=== PATIENT | female | born 1940 | race Caucasian/White ===

== ENCOUNTER 2019-01-07 16:44 | Emergency (ER) | payer OTHER, MEDICARE ==
--- NOTE | 2019-01-07 17:46 | ER ---
Nurse's Notes [facility] Name: Faith Moreira Age: 78 yrs Sex: Female : 1940 Arrival Date: 01/07/2019 Time: 16:45 Bed 15 Private MD: Diagnosis: Urinary tract infection, site not specified;Tinnitus, unspecified ear Presentation: 01/07 16:49 Presenting complaint: Urinary frequency, nausea, and malaise x 5 days. Recently hb completed Zithromax for URI. Transition of care: patient was not received from another setting of care. Onset of symptoms was January 02, 2019. Risk Assessment: Do you want to hurt yourself or someone else? Patient reports no desire to harm self or others. Care prior to arrival: None. 16:49 Method Of Arrival: Ambulatory 16:49 Acuity: PAUL 3 hb 17:15 Initial Sepsis Screen: Does the patient meet any 2 criteria? No. Patient's initial rb1 sepsis screen is negative. Does the patient have a suspected source of infection? No. Patient's initial sepsis screen is negative. Historical: - Allergies: 16:53 Codeine; hb - Home Meds: 16:53 levothyroxine oral [Active]; Lisinopril Oral [Active]; Lorazepam Oral [Active]; hb - PMHx: 16:53 Hypertension; Hypothyroidism; hb - PSHx: 16:53 Hysterectomy; partial thyroidectomy; hb - Immunization history:: Adult Immunizations up to date. - Social history:: Smoking status: Patient/guardian denies using tobacco. - Ebola Screening: : No symptoms or risks identified at this time. Screenin:15 Abuse screen: Denies threats or abuse. Nutritional screening: No deficits noted. rb1 Tuberculosis screening: No symptoms or risk factors identified. Fall Risk No fall in past 12 months (0 pts). Secondary diagnosis (15 points) dementia, No IV (0 pts). Ambulatory Aid- None/Bed Rest/Nurse Assist (0 pts). Gait- Normal/Bed Rest/Wheelchair (0 pts) Mental Status- Overestimates/Forgets Limitations (15 pts.). Total Zuleta Fall Scale indicates Low Risk Score (25-44 pts). Fall prevention measures have been instituted. Side Rails Up X 2 Placed close to Nursing Station 1:1 attendant Assigned to Pt. Frequent Obs/Assesments occuring Family Present and informed to notify staff if they need to leave bedside As available Patient and Family Educated on Fall Prevention Program and strategies. Assessment: 17:15 General: Appears in no apparent distress. comfortable, Behavior is calm, cooperative, rb1 Denies fever. Pain: Denies pain. Neuro: Level of Consciousness is awake, alert, obeys commands, Oriented to person, place, situation. Cardiovascular: Capillary refill < 3 seconds is brisk in bilateral fingers. Respiratory: Airway is patent Respiratory effort is even, unlabored, Respiratory pattern is regular, symmetrical. GI: Reports nausea. : Reports urinary frequency, Denies burning with urination. : Reports. EENT: Reports ringing in bilateral ears. Derm: Skin is pink, warm \T\ dry. Musculoskeletal: Range of motion: intact in all extremities. 17:15 Reassessment: Daughter reports that the pt. had a cold three weeks ago. Pt. was given a rb1 Z-pack and finished it recently. 17:20 Reassessment: Urine was sent to the lab by ELIO Bowers. rb1 18:03 Reassessment: Discharge pending due to shot time. rb1 18:15 Reassessment: Patient appears in no apparent distress at this time. Patient and/or rb1 family updated on plan of care and expected duration. Pain level reassessed. Patient is alert, oriented x 3, equal unlabored respirations, skin warm/dry/pink. No adverse reaction noted at this time. Vital Signs: 16:51 BP 160 / 93; Pulse 86; Resp 16; Temp 97.9; Pulse Ox 96% on R/A; Pain 0/10; hb 17:50 BP 153 / 89; Pulse 78; Resp 15; Pulse Ox 99% on R/A; rb1 ED Course: 16:45 Patient arrived in ED. ds1 16:51 Triage completed. hb 16:53 Arm band placed on. hb 17:15 Patient has correct armband on for positive identification. Bed in low position. Call rb1 light in reach. Side rails up X 1. Pulse ox on. NIBP on. 17:16 Rivka Meza RN is Primary Nurse. rb1 17:21 Jessica Gonzalez FNP-C [facility]. snw 17:21 Patrick Suarez MD is Attending Physician. snw 18:20 No provider procedures requiring assistance completed. Patient did not have IV access rb1 during this emergency room visit. Administered Medications: 18:03 Drug: Rocephin (cefTRIAXone) 1 grams Route: IM; Site: left gluteus; rb1 18:18 Follow up: Response: No adverse reaction rb1 Outcome: 17:46 Discharge ordered by MD. brizuela 18:20 Patient left the ED. rb1 18:20 Discharged to home ambulatory, with family. rb1 18:20 Condition: stable 18:20 Discharge instructions given to patient, Instructed on discharge instructions, follow up and referral plans. medication usage, Demonstrated understanding of instructions, follow-up care, medications, Prescriptions given X 1. Signatures: Jessica Gonzalez, DIRECTOR OF SPA AND GUEST EXPERIENCE-C DIRECTOR OF SPA AND GUEST EXPERIENCE-CsnBrook Swain ds1 Rivka Meza, RN RN rb1 Rafia Rush RN RN Corrections: (The following items were deleted from the chart) 18:43 18:39 Patient left the ED. rb1 rb1
--- NOTE | 2019-01-07 17:46 | EDPHYS ---
Physician Documentation [facility] Name: Faith Moreira Age: 78 yrs Sex: Female : 1940 Arrival Date: 01/07/2019 Time: 16:45 Bed 15 Private MD: ED Physician Patrick Suarez HPI: 01/07 17:47 This 78 yrs old Female presents to ER via Ambulatory with complaints of snw Urinary Frequency. 17:47 The patient presents with urinary symptoms, dysuria, frequency, urgency. Onset: The snw symptoms/episode began/occurred suddenly. Associated signs and symptoms: Pertinent positives: dysuria, urinary frequency, pt and family state she had a recent URI and is having tinnitus and difficulty hearing. No dizziness, no aspirin daily use or recent large doses. Severity of symptoms: At their worst the symptoms were moderate. It is unknown whether or not the patient has had similar symptoms in the past. It is unknown whether or not the patient has recently seen a physician. Historical: - Allergies: 16:53 Codeine; hb - Home Meds: 16:53 levothyroxine oral [Active]; Lisinopril Oral [Active]; Lorazepam Oral [Active]; hb - PMHx: 16:53 Hypertension; Hypothyroidism; hb - PSHx: 16:53 Hysterectomy; partial thyroidectomy; hb - Immunization history:: Adult Immunizations up to date. - Social history:: Smoking status: Patient/guardian denies using tobacco. - Ebola Screening: : No symptoms or risks identified at this time. ROS: 17:47 Constitutional: Negative for fever, chills, and weight loss, Eyes: Negative for injury, snw pain, redness, and discharge, Neck: Negative for injury, pain, and swelling, Cardiovascular: Negative for chest pain, palpitations, and edema, Respiratory: Negative for shortness of breath, cough, wheezing, and pleuritic chest pain, Abdomen/GI: Negative for abdominal pain, nausea, vomiting, diarrhea, and constipation, Back: Negative for injury and pain, MS/Extremity: Negative for injury and deformity, Skin: Negative for injury, rash, and discoloration, Neuro: Negative for headache, weakness, numbness, tingling, and seizure. 17:47 ENT: Positive for tinnitus. 17:47 : Positive for urinary symptoms, urinary frequency, small amounts, burning with urination. Exam: 17:47 Constitutional: This is a well developed, well nourished patient who is awake, alert, snw and in no acute distress. Head/Face: Normocephalic, atraumatic. Eyes: Pupils equal round and reactive to light, extra-ocular motions intact. Lids and lashes normal. Conjunctiva and sclera are non-icteric and not injected. Cornea within normal limits. Periorbital areas with no swelling, redness, or edema. ENT: Nares patent. No nasal discharge, no septal abnormalities noted. Tympanic membranes are normal and external auditory canals are clear. Oropharynx with no redness, swelling, or masses, exudates, or evidence of obstruction, uvula midline. Mucous membranes moist. Neck: Trachea midline, no thyromegaly or masses palpated, and no cervical lymphadenopathy. Supple, full range of motion without nuchal rigidity, or vertebral point tenderness. No Meningismus. Chest/axilla: Normal chest wall appearance and motion. Nontender with no deformity. No lesions are appreciated. Cardiovascular: Regular rate and rhythm with a normal S1 and S2. No gallops, murmurs, or rubs. Normal PMI, no JVD. No pulse deficits. Respiratory: Lungs have equal breath sounds bilaterally, clear to auscultation and percussion. No rales, rhonchi or wheezes noted. No increased work of breathing, no retractions or nasal flaring. Abdomen/GI: Soft, non-tender, with normal bowel sounds. No distension or tympany. No guarding or rebound. No evidence of tenderness throughout. Back: No spinal tenderness. No costovertebral tenderness. Full range of motion. Skin: Warm, dry with normal turgor. Normal color with no rashes, no lesions, and no evidence of cellulitis. MS/ Extremity: Pulses equal, no cyanosis. Neurovascular intact. Full, normal range of motion. Neuro: Awake and alert, GCS 15, oriented to person, place, time, and situation. Cranial nerves II-XII grossly intact. Motor strength 5/5 in all extremities. Sensory grossly intact. Cerebellar exam normal. Normal gait. Psych: Awake, alert, with orientation to person, place and time. Behavior, mood, and affect are within normal limits. Vital Signs: 16:51 BP 160 / 93; Pulse 86; Resp 16; Temp 97.9; Pulse Ox 96% on R/A; Pain 0/10; hb 17:50 BP 153 / 89; Pulse 78; Resp 15; Pulse Ox 99% on R/A; rb1 MDM: 17:29 Patient medically screened. [facility] 17:46 Data reviewed: vital signs, nurses notes. Data interpreted: Pulse oximetry: on room air snw is 96 %. Interpretation: acceptable. Counseling: I had a detailed discussion with the patient and/or guardian regarding: the historical points, exam findings, and any diagnostic results supporting the discharge/admit diagnosis, lab results, the need for outpatient follow up, to return to the emergency department if symptoms worsen or persist or if there are any questions or concerns that arise at home. Special discussion: Based on the history and exam findings, there is no indication for further emergent testing or inpatient evaluation. I discussed with the patient/guardian the need to see the ENT specialist for further evaluation of the symptoms. I discussed with the patient/guardian the need to see the primary care provider for further evaluation of the symptoms. 18:28 Response to treatment: There is no appreciated change of the patient's symptoms at this snw time. 01/07 17:17 Order name: Urine Dipstick--Ancillary (enter results) ms 01/07 17:17 Order name: Urine Culture ms Administered Medications: 18:03 Drug: Rocephin (cefTRIAXone) 1 grams Route: IM; Site: left gluteus; rb1 18:18 Follow up: Response: No adverse reaction rb1 Disposition: 01/08 07:55 Co-signature as Attending Physician, Patrick Suarez MD I agree with the assessment and [facility] plan of care. Disposition: 01/07/19 17:46 Discharged to Home. Impression: Urinary tract infection, site not specified, Tinnitus, unspecified ear. - Condition is Stable. - Discharge Instructions: Dysuria, Tinnitus, Hypertension, Urinary Tract Infection, Adult, Rehydration, Adult. - Prescriptions for Augmentin 875- 125 mg Oral Tablet - take 1 tablet by ORAL route every 12 hours for 10 days; 20 tablet. - Medication Reconciliation Form, Thank You Letter, Antibiotic Education, Prescription Opioid Use form. - Follow up: Private Physician; When: 2 - 3 days; Reason: Recheck today's complaints, Continuance of care, Re-evaluation by your physician. Follow up: Emergency Department; When: As needed; Reason: Worsening of condition. Signatures: Dispatcher [employer] [facility] Patrick Suarez MD MD cha Therrien, Shelly, DATA SCIENCE AND IOT MANAGER-C DATA SCIENCE AND IOT MANAGER-Csnw Rivka Meza, RN RN rb1 Rafia Rush RN RN Corrections: (The following items were deleted from the chart) 01/07 18:27 17:46 Urine Culture+BA.LAB.BRZ ordered. [facility] 18:39 17:46 01/07/2019 17:46 Discharged to Home. Impression: Urinary tract infection, site rb1 not specified; Tinnitus, unspecified ear. Condition is Stable. Forms are Medication Reconciliation Form, Thank You Letter, Antibiotic Education, Prescription Opioid Use. Follow up: Private Physician; When: 2 - 3 days; Reason: Recheck today's complaints, Continuance of care, Re-evaluation by your physician. Follow up: Emergency Department; When: As needed; Reason: Worsening of condition. snw
[2019-01-07] MEDS ORDERED: CEFTRIAXONE 1000 MG/VIAL ONE (18:08)
[2019-01-07 20:39] LABS: Urine Blood 2+ (NEG); Urine Glucose NEGATIVE (NEG); Urine Protein 2+ (NEG); Urine Specific Gravity 1.025 (1.005-1.030)
== END 2019-01-07 18:39 | disposition home or self-care (01) ==
LOC: ER 16:44
DX: N39.0 Urinary tract infection, site not specified (principal); H93.19 Tinnitus, unspecified ear; I10 Essential (primary) hypertension; E03.9 Hypothyroidism, unspecified; Z88.5 Allergy status to narcotic agent
CPT/HCPCS: 81003; 87077; 87086; 87088; 87186; 96372; 99283

== ENCOUNTER 2020-07-22 10:44 | Emergency (ER) | payer OTHER, MEDICARE ==
[2020-07-22] MEDS ORDERED: MORPHINE 2 MG/ML SYR ONE (11:10)
[2020-07-22] MEDS ORDERED: ONDANSETRON 4 MG/2 ML VIAL ONE ×2 (11:10→13:33)
[2020-07-22] MEDS ORDERED: NA CHLORIDE 0.9% 500 ML ONE (11:10)
[2020-07-22 11:22] LABS: Absolute Lymphocytes (CBC) 2.2 K/uL (0.7-4.9); Hematocrit 42.3 % (36.0-45.0); Lymphocytes % 27.1 % (15.3-44.8); MPV 8.2 fL (7.6-11.3); RBC Red Blood Cell Count 4.67 M/uL (3.86-4.86)
[2020-07-22 11:41] LABS: Albumin 3.5 g/dL (3.4-5.0); Bilirubin Direct 0.1 mg/dL (0-0.2); Bilirubin Total 0.5 mg/dL (0.2-1.0); Potassium 3.3 mmol/L (3.5-5.1)
--- NOTE | 2020-07-22 11:45 | RAD REPORT ---
EXAM DESCRIPTION: CT - Stone Protocol - 07/22/2020 11:28 am CLINICAL HISTORY: Flank pain. FLANK PAIN COMPARISON: No comparisons TECHNIQUE: Axial images were obtained without oral or IV contrast. Lack of contrast limits solid org an and vascular assessment. The [id number] spans the entirety of the system partially obscuring uppermost abdomen and lung bases. Coronal reformatted images were obtained and reviewed. All CT scans are performed using dose optimization technique as appropriate and may include automated exposure control or mA/KV adjustment according to patient size. FINDINGS: Emphysematous lung bases are present. Mild thickening of the distal esophagus is present. Imaged portions of the liver and spleen show no suspicious findings on non-contrast imaging. The panc reas and adrenal glands are normal. No pathologic lymphadenopathy in the abdomen or pelvis. 2 mm calculus is present inferior calyx right kidney. Otherwise, no urinary tract stone seen. No hydr onephrosis is evident. No bowel obstruction, free air, free fluid or abscess. Normal appendix noted. Moderate lumbosacral degenerative changes. Small fat containing inguinal hernias, slightly larger on the right. IMPRESSION: 2 mm calculus inferior right kidney without hydronephrosis.
[2020-07-22 11:50] LABS: Urine Bacteria <20 /HPF (<20); Urine Culture Reflex Order NOT NEEDED; Urine RBC <5 /HPF (NONE SEEN)
--- NOTE | 2020-07-22 13:05 | RAD REPORT ---
EXAM DESCRIPTION: US - Abdomen Exam Limited - 07/22/2020 12:57 pm CLINICAL HISTORY: back pain, right upper quadrant pain COMPARISON: Stone Protocol dated 07/22/2020 FINDINGS: No gallstones, sludge or other abnormalities within the gallbladder lumen. There is no wal l thickening or pericholecystic fluid. No common duct stone or biliary tree dilatation identified. IMPRESSION: Normal gallbladder and biliary tree ultrasound.
--- NOTE | 2020-07-22 13:40 | ER ---
Nurse's Notes [facility] Name: Faith Moreira Age: 79 yrs Sex: Female : 1940 Arrival Date: 07/22/2020 Time: 10:47 Bed 17 Private MD: Diagnosis: Low back pain Presentation: 07/22 10:52 Chief complaint: EMS states: Right flank pain, radiate to RUQ, unknown when pain jl7 started. Pt A\T\Ox2 to self and place. Coronavirus screen: Client denies travel out of the [place] in the last 14 days. At this time, the client does not indicate any symptoms associated with coronavirus-19. Ebola Screen: No symptoms or risks identified at this time. Initial Sepsis Screen: Does the patient meet any 2 criteria? No. Patient's initial sepsis screen is negative. Does the patient have a suspected source of infection? No. Patient's initial sepsis screen is negative. Risk Assessment: Do you want to hurt yourself or someone else? Patient reports no desire to harm self or others. Onset of symptoms is unknown. Care prior to arrival: Medication(s) given: 30 mg Toradol IVP IV initiated. 20 GA, in the left hand. 10:52 Method Of Arrival: EMS: [facility] jl7 10:52 Acuity: PAUL 3 jl7 Triage Assessment: 10:55 General: Appears in no apparent distress. uncomfortable, Behavior is cooperative, jl7 anxious. Pain: Complains of pain in right mid back Pain radiates to right upper quadrant Pain currently is 10 out of 10 on a pain scale. Is continuous. Neuro: Level of Consciousness is awake, alert, obeys commands, Oriented to person, place, time, situation. Cardiovascular: Patient's skin is warm and dry. Respiratory: Airway is patent Respiratory effort is even, unlabored, Respiratory pattern is symmetrical, tachypnea. GI: Abdomen is round non-distended. : Denies burning with urination. Derm: Skin is pink, warm \T\ dry. Historical: - Allergies: 10:55 Codeine; jl7 - PMHx: 10:55 Hypertension; Hypothyroidism; jl7 - PSHx: 10:55 Hysterectomy; jl7 - Immunization history:: Adult Immunizations unknown. - Social history:: Smoking status: Patient denies any tobacco usage or history of. Screenin:27 Abuse screen: Denies threats or abuse. Denies injuries from another. Nutritional jl7 screening: No deficits noted. Tuberculosis screening: No symptoms or risk factors identified. Fall Risk IV access (20 points). Total Zuleta Fall Scale indicates No Risk (0-24 pts). Assessment: 11:27 Reassessment: daughter at bedside, reports hx of dementia and the pain started suddenly jl7 this morning. 12:13 Reassessment: Patient appears in no apparent distress at this time. No changes from jl7 previously documented assessment. Patient and/or family updated on plan of care and expected duration. Pain level reassessed. Patient is alert, oriented x 3, equal unlabored respirations, skin warm/dry/pink. 13:30 Reassessment: Patient appears in no apparent distress at this time. Patient and/or jl7 family updated on plan of care and expected duration. Pain level reassessed. Patient is alert, oriented x 3, equal unlabored respirations, skin warm/dry/pink. Patient states feeling better. Patient states symptoms have improved. Vital Signs: 10:52 BP 165 / 74; Pulse 78; Resp 23; Temp 97.9; Pulse Ox 100% ; Weight 68.04 kg; Pain 10/10; jl7 12:12 BP 161 / 66; Pulse 81; Resp 19 S; Pulse Ox 100% on R/A; jl7 13:30 BP 158 / 77; Pulse 72; Resp 15; Pulse Ox 100% ; jl7 ED Course: 10:47 Patient arrived in ED. em1 10:48 Patrick Feliz PA is PHCP. cp 10:48 Augustin Adams MD is Attending Physician. cp 10:52 Tao Tate RN is Primary Nurse. jl7 10:54 Triage completed. jl7 10:55 Arm band placed on right wrist. jl7 11:11 Initial lab(s) drawn, by me, sent to lab. Maintain EMS IV. Dressing intact. Good blood jl7 return noted. Site clean \T\ dry. Gauge \T\ site: 20 left hand. 11:20 Urine collected: straight cath specimen, clear, Amount Returned: 400mL. Straight cath jl7 inserted, using sterile technique, 16 Fr. Specimen obtained. Returned clear yellow urine. Patient tolerated well. 11:27 Patient has correct armband on for positive identification. Placed in gown. Bed in low jl7 position. Call light in reach. Side rails up X2. Adult w/ patient. potline monitor on. Pulse ox on. NIBP on. Warm blanket given. 11:28 CT Stone Protocol In Process Unspecified. EDMS 12:57 US Abdomen Limited: RUQ abdomen/epigastric In Process Unspecified. EDMS 13:38 Vito Martinez MD is Referral Physician. cp 13:38 Referral Physician role handed off by Vito Martinez MD cp 14:00 No provider procedures requiring assistance completed. IV discontinued, intact, jl7 bleeding controlled, No redness/swelling at site. Pressure dressing applied. Administered Medications: 11:05 Drug: NS 0.9% 250 ml Route: IV; Rate: bolus; Site: left hand; jl7 11:30 Follow up: IV Status: Completed infusion; IV Intake: 250ml jl7 11:05 Drug: Zofran (Ondansetron) 4 mg Route: IVP; Site: left hand; jl7 12:03 Follow up: Response: No adverse reaction jl7 11:08 Drug: morphine 2 mg Route: IVP; Site: left hand; jl7 11:30 Follow up: Response: Pain is unchanged, physician notified jl7 13:28 Drug: Zofran (Ondansetron) 4 mg Route: IVP; Site: right hand; 2 14:13 Follow up: Response: No adverse reaction jl7 14:00 Drug: traMADol 25 mg Route: PO; jl7 14:13 Follow up: Response: Medication administered at discharge. jl7 14:00 Drug: Tylenol 650 mg Route: PO; jl7 14:13 Follow up: Response: Medication administered at discharge. jl7 Intake: 11:30 IV: 250ml; Total: 250ml. jl7 Outcome: 13:39 Discharge ordered by MD. cp 14:00 Discharged to home via wheelchair, with family. jl7 14:00 Condition: stable 14:00 Discharge instructions given to patient, family, Instructed on discharge instructions, follow up and referral plans. medication usage, Demonstrated understanding of instructions, follow-up care, medications, Prescriptions given X 2. 14:15 Patient left the ED. jl7 Signatures: Dispatcher [employer] Efrain Michaels em1 Page, Patrick, Tao Best cp, RN RN jl7 Lalita Boswell, RN RN ll2
--- NOTE | 2020-07-22 13:40 | EDPHYS ---
Physician Documentation [facility] Name: Faith Moreira Age: 79 yrs Sex: Female : 1940 Arrival Date: 07/22/2020 Time: 10:47 Bed 17 Private MD: ED Physician Augustin Adams HPI: 07/22 10:50 This 79 yrs old Female presents to ER via Unassigned with complaints of Right cp Flank Pain. 10:50 The patient complains of pain in the right mid back. The pain does not radiate. Onset: cp The symptoms/episode began/occurred suddenly, this morning. Associated signs and symptoms: Pertinent negatives: diarrhea, fever, pain radiating to the lower extremities, vomiting. Severity of pain: in the emergency department the pain is unchanged despite EMS interventions. Historical: - Allergies: 10:55 Codeine; jl7 - PMHx: 10:55 Hypertension; Hypothyroidism; jl7 - PSHx: 10:55 Hysterectomy; jl7 - Immunization history:: Adult Immunizations unknown. - Social history:: Smoking status: Patient denies any tobacco usage or history of. ROS: 10:55 Back: Positive for flank pain, on the right. cp 10:55 Constitutional: Negative for fever. cp 10:55 Cardiovascular: Negative for chest pain. 10:55 Respiratory: Negative for cough. 10:55 Abdomen/GI: Negative for vomiting, diarrhea, constipation. 10:55 Neuro: Negative for headache, weakness. 10:55 Skin: Negative for cellulitis, rash. cp 10:55 : Negative for urinary symptoms. cp 10:55 All other systems are negative. Exam: 10:57 Head/Face: Normocephalic, atraumatic. cp 10:57 Constitutional: The patient appears in no acute distress, alert, awake, non-diaphoretic, non-toxic, well developed, well nourished, uncomfortable. 11:00 Eyes: Periorbital structures: appear normal, Conjunctiva: normal, no exudate, no cp injection, Sclera: no appreciated abnormality, Lids and lashes: appear normal, bilaterally. 11:00 ENT: External ear(s): are unremarkable, Nose: is normal, Mouth: Lips: moist, Oral mucosa: moist, Posterior pharynx: Airway: no evidence of obstruction, patent. 11:00 Chest/axilla: Inspection: normal, Palpation: is normal, no crepitus, no tenderness. 11:00 Cardiovascular: Rate: normal, Rhythm: regular, Edema: is not appreciated, JVD: is not appreciated. 11:00 Respiratory: the patient does not display signs of respiratory distress, Respirations: normal, no use of accessory muscles, no retractions, labored breathing, is not present, Breath sounds: are clear throughout, no decreased breath sounds. 11:00 Abdomen/GI: Inspection: abdomen appears normal, Bowel sounds: active, all quadrants, Palpation: soft, in all quadrants, mild abdominal tenderness, in the anterior aspect of right lateral abdomen, right upper quadrant and right lower quadrant, severe abdominal tenderness, in the posterior aspect of right lateral abdomen. 11:00 Back: pain, that is moderate, of the right mid back, ROM is normal. 11:00 Skin: no rash present. 11:00 Neuro: Orientation: no acute changes, per EMS, Mentation: no acute changes, per EMS, Motor: moves all fours, strength is normal. Vital Signs: 10:52 BP 165 / 74; Pulse 78; Resp 23; Temp 97.9; Pulse Ox 100% ; Weight 68.04 kg; Pain 10/10; jl7 12:12 BP 161 / 66; Pulse 81; Resp 19 S; Pulse Ox 100% on R/A; jl7 13:30 BP 158 / 77; Pulse 72; Resp 15; Pulse Ox 100% ; jl7 MDM: 10:50 Patient medically screened. cp 11:05 Differential diagnosis: nephrolithiasis, pyelonephritis, UTI, pancreatitis, cp cholecystitis. 13:38 Data reviewed: vital signs, nurses notes, lab test result(s), radiologic studies, CT cp scan. 13:38 Counseling: I had a detailed discussion with the patient and/or guardian regarding: the cp historical points, exam findings, and any diagnostic results supporting the discharge/admit diagnosis, lab results, radiology results, the need for outpatient follow up, a family practitioner, to return to the emergency department if symptoms worsen or persist or if there are any questions or concerns that arise at home. Response to treatment: the patient's symptoms have markedly improved after treatment, VSS. Pain and nausea improved. CT negative for acute findings. Will discharge to home for continued monitoring. 07/22 10:50 Order name: Basic Metabolic Panel; Complete Time: 12:04 cp 07/22 12:04 Interpretation: Normal except: K 3.3; GLUC 109; GFR 65. cp 07/22 10:50 Order name: CBC with Diff; Complete Time: 12:04 cp 07/22 10:50 Order name: Hepatic Function; Complete Time: 12:04 cp 07/22 12:11 Interpretation: Normal except: GLOB 4.5; A/G 0.8. cp 07/22 10:50 Order name: Lipase; Complete Time: 12:04 cp 07/22 10:50 Order name: Urine Microscopic Only; Complete Time: 12:04 cp 07/22 11:32 Order name: Urine Dipstick--Ancillary (enter results) em1 07/22 10:50 Order name: CT Stone Protocol; Complete Time: 12:04 cp 07/22 12:31 Order name: US Abdomen Limited: RUQ abdomen/epigastric; Complete Time: 13:19 cp 07/22 10:50 Order name: IV Saline Lock; Complete Time: 10:56 cp 07/22 10:50 Order name: Labs collected and sent; Complete Time: 11:11 cp 07/22 10:50 Order name: Urine Dipstick-Ancillary (obtain specimen); Complete Time: 11:28 cp Administered Medications: 11:05 Drug: NS 0.9% 250 ml Route: IV; Rate: bolus; Site: left hand; jl7 11:30 Follow up: IV Status: Completed infusion; IV Intake: 250ml jl7 11:05 Drug: Zofran (Ondansetron) 4 mg Route: IVP; Site: left hand; jl7 12:03 Follow up: Response: No adverse reaction jl7 11:08 Drug: morphine 2 mg Route: IVP; Site: left hand; jl7 11:30 Follow up: Response: Pain is unchanged, physician notified jl7 13:28 Drug: Zofran (Ondansetron) 4 mg Route: IVP; Site: right hand; 2 14:13 Follow up: Response: No adverse reaction jl7 14:00 Drug: traMADol 25 mg Route: PO; jl7 14:13 Follow up: Response: Medication administered at discharge. jl7 14:00 Drug: Tylenol 650 mg Route: PO; jl7 14:13 Follow up: Response: Medication administered at discharge. jl7 Disposition: 13:50 Chart complete. cp 15:21 Co-signature as Attending Physician, Augustin Adams MD. rn Disposition: 07/22/20 13:39 Discharged to Home. Impression: Low back pain. - Condition is Stable. - Discharge Instructions: Back Pain, Adult. - Prescriptions for Tramadol 50 mg Oral Tablet - take 1 tablet by ORAL route every 8 hours As needed as needed; 15 tablet. Mobic 7.5 mg Oral Tablet - take 1 tablet by ORAL route once daily take with food; 20 tablet. - Medication Reconciliation Form, Thank You Letter, Antibiotic Education, Prescription Opioid Use form. - Follow up: Vito Martinez MD; When: 1 - 2 days; Reason: Worsening of condition. Follow up: Private Physician; When: 1 - 2 days; Reason: Recheck today's complaints. - Problem is new. - Symptoms have improved. Signatures: Dispatcher [employer] EDMS Augustin Adams MD MD rn Patrick Feliz PA PA cp Tao Tate RN RN jl7 Lalita Boswell RN RN ll2 Corrections: (The following items were deleted from the chart) 14:15 13:39 07/22/2020 13:39 Discharged to Home. Impression: Low back pain. Condition is jl7 Stable. Forms are Medication Reconciliation Form, Thank You Letter, Antibiotic Education, Prescription Opioid Use. Follow up: Private Physician; When: 1 - 2 days; Reason: Recheck today's complaints. Problem is new. Symptoms have improved. cp 07/23 01:30 07/22 10:55 All other systems are negative, cp cp
[2020-07-22] MEDS ORDERED: ACETAMINOPHEN 325 MG TABLET ONE (14:03)
[2020-07-22] MEDS ORDERED: TRAMADOL HCL 50 MG TAB ONE (14:04)
[2020-07-22 14:28] LABS: Urine Blood TRACE (NEG); Urine Glucose NEGATIVE (NEG); Urine Protein NEGATIVE (NEG)
[2020-07-22 18:05] VITALS: TEMP 97.9; O2SAT 100
[2020-07-22 18:07] VITALS: BP 158/77
== END 2020-07-22 14:15 | disposition home or self-care (01) ==
LOC: ER 10:44
DX: M54.5 Low back pain (principal); I10 Essential (primary) hypertension; Z88.5 Allergy status to narcotic agent
CPT/HCPCS: 85025; 80048; 36415; 80076; 83690; 76377; 74176; 76705; 51702; 99284; Q9967; J2270; J7040; J2405 ×2; 81003; 81015

== ENCOUNTER 2020-08-03 05:38 | Observation (INO) | payer OTHER, MEDICARE ==
[2020-08-03 06:28] LABS: Absolute Lymphocytes (CBC) 1.6 K/uL (0.7-4.9); Basophils % 0.8 % (0-1.3); Hematocrit 38.7 % (36.0-45.0); Lymphocytes % 19.1 % (15.3-44.8); MPV 8.2 fL (7.6-11.3)
[2020-08-03 06:41] LABS: Protime INR 1.04
[2020-08-03 06:49] LABS: ALT/SGPT 23 U/L (12-78); AST/SGOT 17 U/L (15-37); Albumin 3.2 g/dL (3.4-5.0); Alkaline Phosphatase 94 U/L (45-117); BUN Blood Urea Nitrogen 10 mg/dL (7-18); Bicarbonate 23 mmol/L (21-32); Bilirubin Direct 0.1 mg/dL (0-0.2); Bilirubin Total 0.6 mg/dL (0.2-1.0); Glucose Level 131 mg/dL (74-106); NT PRO-BNP 136 pg/mL (<450); Potassium 3.7 mmol/L (3.5-5.1); Protein, Total 6.9 g/dL (6.4-8.2); Sodium Level 138 mmol/L (136-145); Troponin (Emerg Dept Use Only) < 0.02 ng/mL (0.0-0.045)
[2020-08-03] MEDS ORDERED: ONDANSETRON 4 MG/2 ML VIAL ONE (06:58)
[2020-08-03] MEDS ORDERED: MORPHINE 4 MG/ML SYR ONE (06:58)
[2020-08-03] MEDS ORDERED: FENTANYL CITR 100 MCG/2 ML ONE (07:14)
--- NOTE | 2020-08-03 08:47 | RAD REPORT ---
EXAM DESCRIPTION: CT - Stone Protocol - 08/03/2020 8:03 am CLINICAL HISTORY: fall, low back pain, abdominal pain COMPARISON: Stone Protocol dated 07/22/2020 TECHNIQUE: Axial [address] imaging of the abdomen and pelvis was performed without IV contrast. No IV contrast was given because of allergy, abnormal renal function, patient refusal or physician re quest. No oral contrast given. All CT scans are performed using dose optimization technique as appropriate and may include automated exposure control or mA/KV adjustment according to patient size. FINDINGS: No acute lung base finding. No pericardial effusion, pericardial thickening or cardiomegal y. Slight elevation of the right hemidiaphragm noted. There is slight thickening of the distal esopha denia rubi. This is probably artifact or may be very minimal sliding-type hiatal hernia. This less pro minent than on the prior study. The liver, spleen and pancreas show no suspicious findings on non-contrast imaging. Gallbladder and b iliary tree are also without suspicious finding. No hydronephrosis or suspicious renal mass. Small nonobstructing calculus still present lower pole ri ght kidney. No significant adrenal finding. Isodense renal masses and pyelonephritis cannot be exclud ed in the absence of IV contrast. The urinary bladder is without significant finding. Uterus is absen t. Atrophic ovaries show no suspicious findings. No dilated bowel loops or bowel wall thickening. No appendicitis or other active bowel process. Diver ticulosis is minimal. No free air, free fluid or inflammatory stranding. No mass or bulky lymphadenop athy. Small inguinal hernias are present extending 2-3 cm into the inguinal canals. This is a stable presentation over the short interval. Degenerative and scoliotic changes in the spine are again noted. Multilevel degenerative disc disease seen. No new compression fracture or acute spine finding. IMPRESSION: As detailed above, no acute or active abdominal or pelvic process identified. No worriso me change from July 22 imaging. Full assessment is limited is the absence of IV contrast.
--- NOTE | 2020-08-03 08:49 | RAD REPORT ---
EXAM DESCRIPTION: CT - CTHCSPWOC - 08/03/2020 8:26 am CLINICAL HISTORY: fall, head and neck injury COMPARISON: No comparisons TECHNIQUE: Axial 5 mm thick images of the head were obtained. Axial 2 mm thick images of the cervic al spine were obtained with sagittal and coronal reconstruction images generated and reviewed. All CT scans are performed using dose optimization technique as appropriate and may include automated exposure control or mA/KV adjustment according to patient size. FINDINGS: No intracranial hemorrhage, mass, edema or acute intracranial finding. No acute cortical b ased infarction. Moderate severity atrophy and chronic ischemic changes are present. Ventricles are i n proportion to volume loss. Mastoid air cells and paranasal sinuses are clear. No globe or orbit abn ormality seen. Cervical bodies are normal in height. Slight retrolisthesis of C5 on C6. C5-6 and C6-7 disc space april rowing present peer multilevel facet joint degenerative change present. Right C4-5 and bilateral C5-6 foraminal stenosis seen. Right C6-7 foraminal stenosis present. No fracture or acute bony abnormalit y. Central canal detail is inherently limited. No paraspinal mass or hematoma. IMPRESSION: Moderate severity atrophy and chronic ischemic change. No acute intracranial finding see n. Cervical spine degenerative change. No acute finding.
--- NOTE | 2020-08-03 09:05 | EDPHYS ---
Physician Documentation [facility] Name: Faith Moreira Age: 79 yrs Sex: Female : 1940 Arrival Date: 08/03/2020 Time: 05:39 Bed 4 Private MD: ED Physician Augustine Puente HPI: 08/03 06:37 This 79 yrs old Female presents to ER via Wheelchair with complaints of Chest jmm Pain > 30 y/o. 06:37 The patient or guardian reports chest pain that is located primarily in the anterior [facility] chest wall, sternum. Onset: acutely, at 05:00. The pain does not radiate. Associated signs and symptoms: Pertinent negatives: diaphoresis, dizziness, lower extremity pain, lower extremity swelling. The chest pain is described as aching. Duration: The patient or guardian reports a single episode, that is still ongoing, but improving. Modifying factors: The symptoms are alleviated by nothing. the symptoms are aggravated by nothing. This is an 79 year old female with a history of dementia and htn that presents to the ED with complaints of sternal chest pain beginning this morning around 5 am. Pain has improved. Family states the patient tripped and fell 2 days ago while attempting to walk to her phone. Denies CHAN or LOC but has had some back pain since the fall. . Historical: - Allergies: 06:05 Codeine; mg2 - Home Meds: 06:05 levothyroxine oral [Active]; lisinopril Oral [Active]; Lorazepam Oral [Active]; mg2 - PMHx: 06:05 Hypertension; Hypothyroidism; mg2 - PSHx: 06:05 Hysterectomy; mg2 - Immunization history:: Flu vaccine is up to date. - Social history:: Smoking status: Patient denies any tobacco usage or history of. Patient/guardian denies using alcohol, street drugs, IV drugs. ROS: 06:37 Constitutional: Negative for fever, chills, and weight loss. jmm 06:37 Respiratory: Negative for shortness of breath, cough, wheezing, and pleuritic chest pain. 06:37 Cardiovascular: Positive for chest pain. 06:37 Back: Positive for pain with movement. 06:37 All other systems are negative. Exam: 06:07 ECG was reviewed by the Attending Physician. jmm 06:37 Constitutional: This is a well developed, well nourished patient who is awake, alert, jmm and in no acute distress. Head/Face: atraumatic. Eyes: EOMI, no conjunctival erythema appreciated ENT: Moist Mucus Membranes Neck: Trachea midline, Supple Chest/axilla: Normal chest wall appearance and motion. Cardiovascular: Regular rate and rhythm. No edema appreciated Respiratory: Normal respirations, no respiratory distress appreciated Abdomen/GI: Non distended, soft Back: Normal ROM Skin: General appearance color normal MS/ Extremity: Moves all extremities, no obvious deformities appreciated, no edema noted to the lower extremities Neuro: Awake and alert, normal gait Psych: Behavior is normal, Mood is normal, Patient is cooperative and pleasant Vital Signs: 05:50 BP 155 / 63; Pulse 75; Resp 18; Temp 97.6; Pulse Ox 96% on R/A; Weight 65.77 kg; Height mg2 5 ft. 3 in. (160.02 cm); 06:03 BP 155 / 63; Pulse 71; Resp 22; Pulse Ox 97% on R/A; ea 07:00 BP 141 / 79; Pulse 76; Resp 16; Pulse Ox 98% ; bp 08:00 BP 132 / 70; Pulse 72; Resp 25; Pulse Ox 98% ; bp 09:00 BP 153 / 84; Pulse 72; Resp 16; Pulse Ox 97% ; bp 10:01 BP 142 / 56; Pulse 76; Resp 20; Pulse Ox 95% ; bp 05:50 Body Mass Index 25.69 (65.77 kg, 160.02 cm) mg2 MDM: 06:06 Patient medically screened. [facility] 09:03 The patient was given aspirin in the Emergency Department. Data reviewed: vital signs, [facility] nurses notes, lab test result(s), EKG, radiologic studies, CT scan, plain films. Counseling: I had a detailed discussion with the patient and/or guardian regarding: the historical points, exam findings, and any diagnostic results supporting the discharge/admit diagnosis, lab results, radiology results, the need for further work-up and treatment in the hospital. ED course: I discussed the patient with Dr. Aguilar whom accepted the patient. . 08/03 06:00 Order name: Basic Metabolic Panel; Complete Time: 06:58 mg2 08/03 06:00 Order name: CBC with Diff; Complete Time: 06:31 mg2 08/03 06:00 Order name: LFT's; Complete Time: 06:58 mg2 08/03 06:00 Order name: Magnesium; Complete Time: 06:58 mg2 08/03 06:01 Order name: NT PRO-BNP; Complete Time: 06:58 mg2 08/03 06:01 Order name: PT-INR; Complete Time: 06:58 mg2 08/03 06:01 Order name: Troponin (emerg Dept Use Only); Complete Time: 06:58 mg2 08/03 06:01 Order name: XRAY Chest (1 view); Complete Time: 09:18 mg2 08/03 06:43 Order name: CT Head C Spine; Complete Time: 08:56 [facility] 08/03 06:43 Order name: CT Stone Protocol; Complete Time: 08:56 [facility] 08/03 06:01 Order name: EKG; Complete Time: 06:01 mg2 08/03 06:01 Order name: Cardiac monitoring; Complete Time: 06:15 mg2 08/03 06:01 Order name: EKG - Nurse/Tech; Complete Time: 06:15 mg2 08/03 06:01 Order name: IV Saline Lock; Complete Time: 06:15 mg2 08/03 06:01 Order name: Labs collected and sent; Complete Time: 06:15 mg2 08/03 06:01 Order name: O2 Per Protocol; Complete Time: 06:16 mg2 08/03 06:01 Order name: O2 Sat Monitoring; Complete Time: 06:16 mg2 EC:07 Rate is 76 beats/min. Rhythm is regular, premature atrial complexes. QRS [place] is jmm Normal. LA interval is normal. QRS interval is normal. QT interval is normal. No Q waves. T waves are Flattened in lead aVL. No ST changes noted. Reviewed by me. Administered Medications: 07:06 Not Given (Patient Refused): morphine 4 mg IVP once; RASS on ADMIN: Combtv4, Very ea Agttd3, Agttd2, Rstlss1, AlertClm0, Drwsy-1, Lt Sdtn-2, Mod Sdtn-3, Dp Sdtn-4, UnArsble-5 07:06 Drug: Zofran (Ondansetron) 4 mg Route: IVP; Site: right antecubital; ea 09:03 Follow up: Response: No adverse reaction bp 07:06 Drug: fentaNYL (PF) 25 mcg Route: IVP; Site: right antecubital; ea 09:03 Follow up: Response: No adverse reaction bp 09:10 Drug: Aspirin Chewable Tablet 324 mg Route: PO; bp 10:01 Follow up: Response: No adverse reaction bp 10:20 Drug: Ativan 0.5 mg Route: IVP; Site: right antecubital; iw Disposition: 20:06 Co-signature as Attending Physician, Augustine Puente MD. 7 Disposition: 08/03/20 09:04 Hospitalization ordered by Bean Aguilar for Observation. Preliminary diagnosis is Chest pain, unspecified. - Bed requested for Telemetry/MedSurg (observation). - Status is Observation. bp - Condition is Stable. - Problem is new. - Symptoms have improved. Signatures: Dispatcher [employer] EDMS Yordan Luis PA PA Monica Shafer, RN Missy Gonzalez RN Kush Campo ea RN Nick Gan RN Zakiya Alvarez Michele, RN ELIO [facility] Augustine Puente MD MD 7 Corrections: (The following items were deleted from the chart) 06:43 06:32 Lumbar Spine 3 Views+RAD.RAD.BRZ ordered. EDKS EDMS 06:43 06:32 Pelvis+RAD.RAD.BRZ ordered. [facility] EDMS 09:42 09:04 Hospitalization Ordered by Bean Aguilar DO for Observation. Preliminary eb diagnosis is Chest pain, unspecified. Bed requested for Telemetry/MedSurg (observation). Status is Observation. Condition is Stable. Problem is new. Symptoms have improved. [facility] 10:01 09:42 08/03/2020 09:04 Hospitalization Ordered by Bean Aguilar DO for Observation. ja1 Preliminary diagnosis is Chest pain, unspecified. Bed requested for Telemetry/MedSurg (observation). Status is Observation. Condition is Stable. Problem is new. Symptoms have improved. eb 10:24 10:01 08/03/2020 09:04 Hospitalization Ordered by Bean Aguilar DO for Observation. bp Preliminary diagnosis is Chest pain, unspecified. Bed requested for Telemetry/MedSurg (observation). Status is Observation. Condition is Stable. Problem is new. Symptoms have improved. ja1
--- NOTE | 2020-08-03 09:05 | ER ---
Nurse's Notes [facility] Name: Faith Moreira Age: 79 yrs Sex: Female : 1940 Arrival Date: 08/03/2020 Time: 05:39 Bed 4 Private MD: Diagnosis: Chest pain, unspecified Presentation: 08/03 05:50 Chief complaint: Patient's son or daughter states: she called me around 0530 that she mg2 is having chest pain. she had a tripped and fell 2 days ago in the floor and complained of pain all over. denies LOC or headache. 05:50 Coronavirus screen: Client denies travel out of the [place] in the last 14 days. At this mg2 time, the client does not indicate any symptoms associated with coronavirus-19. Ebola Screen: No symptoms or risks identified at this time. Initial Sepsis Screen: Does the patient meet any 2 criteria? No. Patient's initial sepsis screen is negative. Does the patient have a suspected source of infection? No. Patient's initial sepsis screen is negative. Risk Assessment: Do you want to hurt yourself or someone else? Patient reports no desire to harm self or others. Onset of symptoms was August 03, 2020. 05:50 Method Of Arrival: Wheelchair mg2 05:50 Acuity: PAUL 3 mg2 06:03 Coronavirus screen: At this time, the client does not indicate any symptoms associated ea with coronavirus-19. Ebola Screen: No symptoms or risks identified at this time. Historical: - Allergies: 06:05 Codeine; mg2 - Home Meds: 06:05 levothyroxine oral [Active]; lisinopril Oral [Active]; Lorazepam Oral [Active]; mg2 - PMHx: 06:05 Hypertension; Hypothyroidism; mg2 - PSHx: 06:05 Hysterectomy; mg2 - Immunization history:: Flu vaccine is up to date. - Social history:: Smoking status: Patient denies any tobacco usage or history of. Patient/guardian denies using alcohol, street drugs, IV drugs. Screenin:02 Abuse screen: Denies threats or abuse. Nutritional screening: No deficits noted. ea Tuberculosis screening: No symptoms or risk factors identified. Fall Risk IV access (20 points). Assessment: 06:17 General: Appears in no apparent distress. comfortable, Behavior is calm, cooperative. mg2 Pain: Complains of pain in chest Pain does not radiate. Pain began gradually, 1 hour ago. Neuro: Level of Consciousness is awake, alert, obeys commands, Oriented to person, place, time, situation. Cardiovascular: Capillary refill < 3 seconds Patient's skin is warm and dry. Respiratory: Airway is patent Respiratory effort is even, unlabored, Respiratory pattern is regular, symmetrical. GI: : No signs and/or symptoms were reported regarding the genitourinary system. EENT: No signs and/or symptoms were reported regarding the EENT system. Derm: Skin is intact, is healthy with good turgor, Skin is pink, warm \T\ dry. normal. Musculoskeletal: Circulation, motion, and sensation intact. Capillary refill < 3 seconds, Reports pain in whole body. 07:00 Reassessment: RECD REPORT FROM MISSY BALLARD. 79YO WF P/W CP AND ANXIETY. CT PENDING. bp 08:00 Reassessment: PT RETURNED FROM CT. ALL CURRENT ORDERS COMPLETED. bp 09:00 Reassessment: ADMIT INITIATED, HOSPITALIST AT B/S. bp 10:07 Reassessment: ADMIT COMPLETED, REPORT TO TA BALLARD FOR RM 203. bp 10:10 Reassessment: pt crying, appears agitated, daughter states she has not slept very well iw and has been having what seems like panic attacks, BREA Farr notified, verbal order for 0.5 mg Ativan IVP given now. Vital Signs: 05:50 BP 155 / 63; Pulse 75; Resp 18; Temp 97.6; Pulse Ox 96% on R/A; Weight 65.77 kg; Height mg2 5 ft. 3 in. (160.02 cm); 06:03 BP 155 / 63; Pulse 71; Resp 22; Pulse Ox 97% on R/A; ea 07:00 BP 141 / 79; Pulse 76; Resp 16; Pulse Ox 98% ; bp 08:00 BP 132 / 70; Pulse 72; Resp 25; Pulse Ox 98% ; bp 09:00 BP 153 / 84; Pulse 72; Resp 16; Pulse Ox 97% ; bp 10:01 BP 142 / 56; Pulse 76; Resp 20; Pulse Ox 95% ; bp 05:50 Body Mass Index 25.69 (65.77 kg, 160.02 cm) mg2 ED Course: 05:39 Patient arrived in ED. am2 06:00 Christopher Sweeney, RN is Primary Nurse. mg2 06:02 Patient has correct armband on for positive identification. Bed in low position. Call ea light in reach. Side rails up X 1. personnel monitor on. Pulse ox on. NIBP on. 06:03 Arm band placed on right wrist. Patient placed in an exam room, on a stretcher, on ea laboratory monitor, on pulse oximetry. 06:04 Triage completed. mg2 06:06 Yordan Luis PA is PHCP. jmm 06:06 Augustine Puente MD is Attending Physician. jmm 06:14 XRAY Chest (1 view) In Process Unspecified. EDMS 06:18 No provider procedures requiring assistance completed. Inserted saline lock: 20 gauge mg2 in right antecubital area, using aseptic technique. Blood collected. Patient maintains SpO2 saturation greater than 95% on room air. 07:08 Radiology exam delayed due to PT GETTING PAIN MEDS, TOO ANXIOUS \T\ THIS TIME. bq 07:33 Primary Nurse role handed off by Christopher Sweeney, ELIO bp 07:33 Nick Willis, ELIO is Primary Nurse. bp 07:59 CT Head C Spine In Process Unspecified. EDMS 08:04 CT Stone Protocol In Process Unspecified. EDMS 09:04 Bean Aguilar DO is Hospitalizing Provider. jmm 10:08 Patient admitted, IV remains in place. bp Administered Medications: 07:06 Not Given (Patient Refused): morphine 4 mg IVP once; RASS on ADMIN: Combtv4, Very ea Agttd3, Agttd2, Rstlss1, AlertClm0, Drwsy-1, Lt Sdtn-2, Mod Sdtn-3, Dp Sdtn-4, UnArsble-5 07:06 Drug: Zofran (Ondansetron) 4 mg Route: IVP; Site: right antecubital; ea 09:03 Follow up: Response: No adverse reaction bp 07:06 Drug: fentaNYL (PF) 25 mcg Route: IVP; Site: right antecubital; ea 09:03 Follow up: Response: No adverse reaction bp 09:10 Drug: Aspirin Chewable Tablet 324 mg Route: PO; bp 10:01 Follow up: Response: No adverse reaction bp 10:20 Drug: Ativan 0.5 mg Route: IVP; Site: right antecubital; Outcome: 09:04 Decision to Hospitalize by Provider. christopher 10:06 Admitted to Tele accompanied by tech, family with patient, via wheelchair, room 203, bp with chart, Report called to TA BALLARD 10:06 Condition: stable 10:06 Instructed on the need for admit. 10:24 Patient left the ED. bp Signatures: Dispatcher [employer] EDMS Yordan Luis PA PA jmm Quilty, Betty bq Williams, Irene, RN RN iw aPmela Dhaliwal amMissy Richards RN RN Nick Dowling RN RN bp Christopher Sweeney RN RN mg2
--- NOTE | 2020-08-03 09:12 | RAD REPORT ---
EXAM DESCRIPTION: RAD - Chest Single View - 08/03/2020 6:13 am CLINICAL HISTORY: CHEST PAIN, recent trip and fall COMPARISON: Two view chest May 2013 TECHNIQUE: AP portable chest image was obtained 08/03/2020 6:13 am . FINDINGS: No pulmonary contusion or acute lung parenchymal process. Interstitial pattern is accentua anna by a shallow inspiration. No true change is suspected. A few granulomas are seen. Heart and vascu lature are normal. No measurable pleural effusion and no pneumothorax. No acute bony abnormality seen . No acute aortic findings suspected. IMPRESSION: No acute cardiopulmonary process.
--- NOTE | 2020-08-03 09:36 | P.HP ---
Certification for Inpatient Patient admitted to: Observation With expected LOS: <2 Midnights Patient will require the following post-hospital care: None Practitioner: I am a practitioner with admitting privileges, knowledge of patient current condition, hospital course, and medical plan of care. Services: Services provided to patient in accordance with Admission requirements found in Title 42 Section 412.3 of the Code of Federal Regulations Patient History Date of Service: 08/03/20 Primary Care Provider: Fausto Bowen NP; Neurology-Dr. Wilson Reason for admission: Chest pain, abdominal pain, back pain History of Present Illness: 79-year-old female with history of hypertension, hypothyroidism, and dementia. Most information came from the ER provider and daughter. Daughter reports that the patient fell a couple a days ago. Patient with underlying dementia. They are in process of transitioning patient from home to assisted living facility. Today patient reported chest pain, nonspecific. She also reported some abdominal pain and back pain. Due to her dementia chest pain could not be readily evaluated. When she was in the ER she did not have any significant chest pain. Abdominal pain also nonspecific. Patient did not appear significantly agitated. Vital signs stable. CBC unremarkable. BMP unremarkable. Cardiac enzymes unremarkable. EKG shows no specific EKG elevation. CT head unremarkable. CT neck unremarkable. CT abdomen shows no acute changes. Patient was admitted for further evaluation observation. When I saw the patient ER, she was without any significant chest pain, abdominal pain. Patient was sitting in wheelchair. Daughter at bedside. Daughter reports it has been getting more difficult to take care of her. As mentioned above patient in process to be transitioning from home to assisted living facility/memory unit. Allergies codeine Allergy (Verified 06/07/13 14:50) UNK Home medications list reviewed: Yes - Past Medical/Surgical History Diabetic: No -: Hypertension -: Hypothyroidism -: Dementia -: Hysterectomy -: Bladder lift -: Thyroidectomy Psychosocial/ Personal History: Patient currently lives at home with daughter - Family History Family History: Reviewed- Non-Contributory - Social History Smoking Status: Never smoker Alcohol use: No CD- Drugs: No Caffeine use: No Place of Residence: Home Review of Systems General: As per HPI Eyes: Unremarkable ENT: Unremarkable Respiratory: Unremarkable Cardiovascular: Chest Pain, As per HPI Gastrointestinal: Abdominal Pain, As per HPI Genitourinary: Unremarkable Musculoskeletal: Back Pain, As per HPI Integumentary: Unremarkable Neurological: As per HPI Lymphatics: Unremarkable Physical Examination - Physical Exam General: Alert, In no apparent distress, Cooperative, Demented (Patient with moderate to advanced dementia) HEENT: Atraumatic, Normocephalic, Mucous membr. moist/pink Neck: Supple Respiratory: Clear to auscultation bilaterally, Normal air movement Cardiovascular: Normal pulses, Regular rate/rhythm Gastrointestinal: Normal bowel sounds, Soft and benign, Non-distended, No tenderness, No masses, No rebound, No guarding Musculoskeletal: No erythema, No tenderness, No warmth Integumentary: No tenderness/swelling, No erythema, No warmth, No cyanosis Neurological: Normal speech, Normal strength at 5/5 x4 extr, Normal tone, Dementia (Moderate to advanced dementia. 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 Will monitor cardiac enzymes. Will monitor telemetry. Will consult cardiology for further evaluation and recommendation. Suspect chest pain atypical and likely related to fall. If unremarkable will consider discharge later today. CT head unremarkable with chronic ischemic changes noted. CT abdomen unremarkable with nonobstructing nephrolithiasis. No abdominal pain noted. Patient with multi level degenerative disc and joint disease with scoliosis. Will have physical therapy assess ambulation. Will provide medication for pain if needed. Await evaluation by Cardiology. If unremarkable as mentioned above, will plan for discharge later today. Advanced directives address in detail. Patient is do not resuscitate. This was discussed with medical power of district attorney. Medical power of district attorney also reports patient in transition from home to assisted living/memory unit in the next 2 weeks. Hypertension: Restart home medication. Surgical hypothyroidism: Will check a tsh and free T4. Will continue with medication. Moderate to advanced dementia: Restart home medication. Patient seen by neurology as an outpatient. Nonobstructing right nephrolithiasis: Continue as above. 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 Discharge Plan: Home Plan to discharge in: 24 Hours - Advance Directives Does patient have a Living Will: No Does patient have a Durable POA for Healthcare: No - Code Status/Comfort Care Code Status Assessed: Yes (Patient is do not resuscitate) Time Spent Managing Pts Care (In Minutes): 55
[2020-08-03] MEDS ORDERED: LORazepam 2 MG/ML VIAL ONE (10:22)
[2020-08-03] MEDS ORDERED: ONDANSETRON 4 MG/2 ML VIAL IV PRN (10:46)
[2020-08-03] MEDS ORDERED: ACETAMINOPHEN 500 MG TAB PO PRN (10:46)
[2020-08-03 10:48] VITALS: BMI 25.8
[2020-08-03 12:36] LABS: CKMB Creatine Kinase MB 1.7 ng/mL (0.3-3.6); Creatine Phosphokinase 166 U/L (26-192); Troponin I < 0.02 ng/mL (0.0-0.045)
--- NOTE | 2020-08-03 14:36 | P.DS ---
Admission Date: 08/03/20 Discharge Date: 08/03/20 Primary Care Provider: Fausto Bowen NP; Neurology-Dr. Wilson Disposition: ROUTINE DISCHARGE Discharge Condition: GOOD Reason for Admission: Chest pain, abdominal pain, back pain Consultations: Cardiology-Dr. Sage Procedures: CT abdomen: FINDINGS: No acute lung base finding. No pericardial effusion, pericardial thickening or cardiomegaly. Slight elevation of the right hemidiaphragm noted. There is slight thickening of the distal esophagus rubi. This is probably artifact or may be very minimal sliding-type hiatal hernia. This less prominent than on the prior study. The liver, spleen and pancreas show no suspicious findings on non-contrast imaging. Gallbladder and biliary tree are also without suspicious finding. No hydronephrosis or suspicious renal mass. Small nonobstructing calculus still present lower pole right kidney. No significant adrenal finding. Isodense renal masses and pyelonephritis cannot be excluded in the absence of IV contrast. The urinary bladder is without significant finding. Uterus is absent. Atrophic ovaries show no suspicious findings. No dilated bowel loops or bowel wall thickening. No appendicitis or other active bowel process. Diverticulosis is minimal. No free air, free fluid or inflammatory stranding. No mass or bulky lymphadenopathy. Small inguinal hernias are present extending 2-3 cm into the inguinal canals. This is a stable presentation over the short interval. Degenerative and scoliotic changes in the spine are again noted. Multilevel de generative disc disease seen. No new compression fracture or acute spine finding. IMPRESSION: As detailed above, no acute or active abdominal or pelvic process identified. No worrisome change from July 22 imaging. Full assessment is limited is the absence of IV contrast. CT head: FINDINGS: No intracranial hemorrhage, mass, edema or acute intracranial finding. No acute cortical based infarction. Moderate severity atrophy and chronic ischemic changes are present. Ventricles are in proportion to volume loss. Mastoid air cells and paranasal sinuses are clear. No globe or orbit abnormality seen. Cervical bodies are normal in height. Slight retrolisthesis of C5 on C6. C5-6 and C6-7 disc space narrowing present peer multilevel facet joint degenerative change present. Right C4-5 and bilateral C5-6 foraminal stenosis seen. Right C6- 7 foraminal stenosis present. No fracture or acute bony abnormality. Central canal detail is inherently limited. No paraspinal mass or hematoma. IMPRESSION: Moderate severity atrophy and chronic ischemic change. No acute intracranial finding seen. Cervical spine degenerative change. No acute finding. CXR: FINDINGS: No pulmonary contusion or acute lung parenchymal process. Interstitial pattern is accentuated by a shallow inspiration. No true change is suspected. A few granulomas are seen. Heart and vasculature are normal. No measurable pleural effusion and no pneumothorax. No acute bony abnormality seen. No acute aortic findings suspected. IMPRESSION: No acute cardiopulmonary process. 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 Most information came from the ER provider and daughter. Daughter reports that the patient fell a couple a days ago. Patient with underlying dementia. They are in process of transitioning patient from home to assisted living facility. Today patient reported chest pain, nonspecific. She also reported some abdominal pain and back pain. Due to her dementia chest pain could not be readily evaluated. When she was in the ER she did not have any significant chest pain. Abdominal pain also nonspecific. Patient did not appear significantly agitated. Vital signs stable. CBC unremarkable. BMP unremarkable. Cardiac enzymes unremarkable. EKG shows no specific EKG elevation. CT head unremarkable. CT neck unremarkable. CT abdomen shows no acute changes. Patient was admitted for further evaluation observation. When I saw the patient ER, she was without any significant chest pain, abdominal pain. Patient was sitting in wheelchair. Daughter at bedside. Daughter reports it has been getting more difficult to take care of her. As mentioned above patient in process to be transitioning from home to assisted living facility/memory unit. Hospital Course: Patient presented with chest pain, abdominal pain and back pain. All were nonspecific. Patient had recent fall. Patient with underlying history of hypertension, hypothyroidism, moderate to advanced dementia. Patient was evaluated in the emergency room. No significant EKG changes noted. Cardiac enzymes unremarkable. The patient was admitted for further evaluation and observation. CT head showed no acute changes. Chronic ischemic changes noted. CT abdomen showed no acute finding. Nonobstructing nephrolithiasis and hiatal hernia noted. CT scan also revealed multi level degenerative disc and joint disease with scoliosis to the spine. The patient was monitored. Patient was seen by physical therapy. She was able to ambulate well over 500 feet. Patient also evaluated by Cardiology. No cardiac intervention needed at this time. At discharge patient may continue with aspirin 81 mg daily. Recommend fall precaution. Patient would benefit with home health and physical therapy at discharge or caregiver services. Patient with underlying moderate to advanced dementia. I was able to get in contact with the daughter. Daughter reports patient already has caregiver services. She also takes care the patient along with her sister. Patient is in process of moving near her daughter to an assisted living facility. This will likely happen soon. Daughter reports patient with insomnia in some agitation at times. Patient would benefit with assisted living facility or member care unit depending her needs. Education on dementia provided. Recommend follow up with neurology in 1-2 weeks to further address her condition. Patient would benefit with outpatient MRI to further address. At discharge will recommend to continue trazodone 50 mg at bedtime to help with insomnia in her dementia. Additional medication will include melatonin 5 mg at bedtime, thiamine 100 mg daily, folic acid 1 mg daily, and vitamin-B 12 daily. A limited supply of Xanax 0.25 mg 1 pill twice daily as needed for anxiety will be provided. Fall precautions in place. Patient with hypertension. This has remained stable. At discharge she will continue with lisinopril 20 mg daily. Recommend to monitor blood pressure daily. Patient should keep a log of blood pressures to further address with PCP. Recommend to maintain blood pressure less 150/80. Further adjustment may be required if taking medication. This can be done with the help of PCP. May need to hold medication if blood pressure less than 100 systolic. Recommend follow up with PCP to further monitor and address hypertension for better control. Patient with surgical hypothyroidism. At discharge she will continue with levothyroxine 25 mcg daily. Recommend to recheck tsh and free T4 in 2-4 weeks to monitor her progress. This can be done with the help of her PCP. Patient with underlying depression. At discharge she may continue with Lexapro 10 mg daily. Recommend follow up with her PCP to further monitor and address. CT scan revealed hiatal hernia. Likely GERD with hiatal hernia. At discharge patient will be provided Protonix 40 mg daily. Recommend to discontinue melox icam as this may cause some gastritis. Recommend no further use of nonsteroidal anti-inflammatories. Patient with noted multi level degenerative disc and joint disease of the spine with scoliosis. Patient may take Tylenol as needed for pain. Patient takes tramadol 50 mg 3 times a day as needed for pain. Recommend to discontinue meloxicam as recommended above. Vital Signs/Physical Exam: Temp Pulse Resp BP Pulse Ox 97.3 F 73 20 136/73 94 08/03/20 10:43 08/03/20 10:43 08/03/20 10:43 08/03/20 10:43 08/03/20 10:43 General: Alert, In no apparent distress, Cooperative, Demented HEENT: Atraumatic Neck: Supple Respiratory: Clear to auscultation bilaterally, Normal air movement Cardiovascular: Normal pulses, Regular rate/rhythm Gastrointestinal: Normal bowel sounds, Soft and benign, Non-distended, No tenderness, No masses, No rebound, No guarding Musculoskeletal: No erythema, No tenderness, No warmth Integumentary: No erythema, No warmth, No cyanosis Neurological: Normal speech, Normal strength at 5/5 x4 extr, Normal tone, Dementia Laboratory Data at Discharge: WBC 8.3 K/uL (4.3-10.9) 08/03/20 06:10 Hgb 13.2 g/dL (12.0-15.0) 08/03/20 06:10 Hct 38.7 % (36.0-45.0) 08/03/20 06:10 Plt Count 275 K/uL (152-406) 08/03/20 06:10 PT 12.3 SECONDS (9.5-12.5) 08/03/20 06:10 INR 1.04 08/03/20 06:10 Sodium 138 mmol/L (136-145) 08/03/20 06:10 Potassium 3.7 mmol/L (3.5-5.1) 08/03/20 06:10 BUN 10 mg/dL (7-18) 08/03/20 06:10 Creatinine 0.62 mg/dL (0.55-1.3) 08/03/20 06:10 Glucose 131 mg/dL (74-106) H 08/03/20 06:10 Magnesium 2.0 mg/dL (1.8-2.4) 08/03/20 06:10 Total Bilirubin 0.6 mg/dL (0.2-1.0) 08/03/20 06:10 AST 17 U/L (15-37) 08/03/20 06:10 ALT 23 U/L (12-78) 08/03/20 06:10 Alkaline Phosphatase 94 U/L (45-117) 08/03/20 06:10 Troponin I < 0.02 ng/mL (0.0-0.045) 08/03/20 11:48 Home Medications: ALPRAZolam [Xanax] 0.25 mg PO BID PRN #10 tab 08/03/20 Aspirin [Aspirin EC 81 MG] 81 mg PO DAILY #90 tablet. 08/03/20 Cyanocobalamin (Vitamin B-12) [Vitamin B-12] 1,000 mcg PO DAILY #90 tablet 08/03/20 Escitalopram [Lexapro*] 10 mg PO DAILY 08/03/20 Folic Acid 1 mg PO DAILY #90 tablet 08/03/20 Levothyroxine [Synthroid*] 25 mcg PO [id number] 08/03/20 Melatonin 5 mg PO BEDTIME #30 tablet 08/03/20 Pantoprazole [Protonix Tab] 40 mg PO DAILY #30 tab 08/03/20 Thiamine HCl 100 mg PO DAILY #90 tablet 08/03/20 Trazodone [Desyrel*] 50 mg PO BEDTIME #30 08/03/20 lisinopriL [Prinivil*] 20 mg PO DAILY 08/03/20 traMADol HCL [Ultram*] 50 mg PO Q8H PRN 08/03/20 New Medications: Aspirin [Aspirin EC 81 MG] 81 mg PO DAILY #90 tablet. Trazodonnilo [Desyrel*] 50 mg PO BEDTIME #30 Folic Acid 1 mg PO DAILY #90 tablet Melatonin 5 mg PO BEDTIME #30 tablet Pantoprazole [Protonix Tab] 40 mg PO DAILY #30 tab Thiamine HCl 100 mg PO DAILY #90 tablet Cyanocobalamin (Vitamin B-12) [Vitamin B-12] 1,000 mcg PO DAILY #90 tablet ALPRAZolam [Xanax] 0.25 mg PO BID PRN #10 tab PRN Reason: Anxiety Patient Discharge Instructions: 1. Recommend follow up with PCP in 1 week to follow up hospitalization. 2. Patient presented with chest pain, abdominal pain and back pain. All were nonspecific. Patient had recent fall. Patient with underlying history of hypertension, hypothyroidism, moderate to advanced dementia. Patient was evaluated in the emergency room. No significant EKG changes noted. Cardiac enzymes unremarkable. The patient was admitted for further evaluation and observation. CT head showed no acute changes. Chronic ischemic changes noted. CT abdomen showed no acute finding. Nonobstructing nephrolithiasis and hiatal hernia noted. CT scan also revealed multi level degenerative disc and joint disease with scoliosis to the spine. The patient was monitored. Patient was seen by physical therapy. She was able to ambulate well over 500 feet. Patient also evaluated by Cardiology. No cardiac intervention needed at this time. At discharge patient may continue with aspirin 81 mg daily. Recommend fall precaution. Patient would benefit with home health and physical therapy at discharge or caregiver services. 3. Patient with underlying moderate to advanced dementia. I was able to get in contact with the daughter. Daughter reports patient already has caregiver services. She also takes care the patient along with her sister. Patient is in process of moving near her daughter to an assisted living facility. This will likely happen soon. Daughter reports patient with insomnia in some agitation at times. Patient would benefit with assisted living facility or member care unit depending her needs. Education on dementia provided. Recommend follow up with neurology in 1-2 weeks to further address her condition. Patient would benefit with outpatient MRI to further address. At discharge will recommend to continue trazodone 50 mg at bedtime to help with insomnia in her dementia. Additional medication will include melatonin 5 mg at bedtime, thiamine 100 mg daily, folic acid 1 mg daily, and vitamin-B 12 daily. Patient will be given a limited supply of Xanax 0.25 mg twice daily as needed for anxiety. Fall precautions in place. 4. Patient with hypertension. This has remained stable. At discharge she will continue with lisinopril 20 mg daily. Recommend to monitor blood pressure daily. Patient should keep a log of blood pressures to further address with PCP. Recommend to maintain blood pressure less 150/80. Further adjustment may be required if taking medication. This can be done with the help of PCP. May need to hold medication if blood pressure less than 100 systolic. Recommend follow up with PCP to further monitor and address hypertension for better control. 5. Patient with surgical hypothyroidism. At discharge she will continue with levothyroxine 25 mcg daily. Recommend to recheck tsh and free T4 in 2-4 weeks to monitor her progress. This can be done with the help of her PCP. 6. Patient with underlying depression. At discharge she may continue with Lexapro 10 mg daily. Recommend follow up with her PCP to further monitor and address. 7. CT scan revealed hiatal hernia. Likely GERD with hiatal hernia. At discharge patient will be provided Protonix 40 mg daily. Recommend to discontinue meloxicam as this may cause some gastritis. Recommend no further use of nonsteroidal anti-inflammatories. 8. Patient with noted multi level degenerative disc and joint disease of the spine with scoliosis. Patient may take Tylenol as needed for pain. Patient takes tramadol 50 mg 3 times a day as needed for pain. Recommend to discontinue meloxicam as recommended above. Diet: AHA Activity: Fall precautions Time spent managing pt's care (in minutes): 55
[2020-08-03 15:40] VITALS: BP 172/74; TEMP 97.7
[2020-08-03] MEDS ORDERED: LORazepam 2 MG/ML VIAL IV ONE (15:44)
[2020-08-03 16:10] VITALS: O2SAT 96
[2020-08-03] MEDS ORDERED: ATORVASTATIN 10 MG TAB PO SCH (21:00)
[2020-08-04] MEDS ORDERED: ASPIRIN EC 81 MG TAB PO SCH (09:00)
[2020-08-04] MEDS ORDERED: lisinopriL 5 MG TAB PO SCH (09:00)
[2020-08-04] MEDS ORDERED: ENOXAPARIN 40 MG/0.4 ML SQ SCH (09:00)
== END 2020-08-03 17:35 | disposition home or self-care (01) ==
LOC: ER 05:38 → ERHOLD 09:25 → 2ND 10:07
PROVIDERS: ADMIT Family Medicine; ATTEND Family Medicine
DX: R07.9 Chest pain, unspecified (principal); R10.9 Unspecified abdominal pain; M54.9 Dorsalgia, unspecified; I10 Essential (primary) hypertension; E89.0 Postprocedural hypothyroidism; F03.90 Unspecified dementia, unspecified severity, without behavioral disturbance, psychotic disturbance, mood disturbance, and anxiety; N20.0 Calculus of kidney; M15.9 Polyosteoarthritis, unspecified; M41.9 Scoliosis, unspecified; K21.9 Gastro-esophageal reflux disease without esophagitis; K44.9 Diaphragmatic hernia without obstruction or gangrene; G47.00 Insomnia, unspecified; F41.9 Anxiety disorder, unspecified; F32.9 Major depressive disorder, single episode, unspecified; Z91.81 History of falling; Z88.6 Allergy status to analgesic agent; Z66 Do not resuscitate
CPT/HCPCS: 93005; 85025; 80048; 36415; 83735; 82550; 85610; 80076; 84484 ×2; 82553; 83880; 70450; 72125; 76377; 74176; 71045; 97116; 97161; 96375; 96374; 99285; J3010; J2405; G0378 ×2

== ENCOUNTER 2020-09-28 09:30 | Emergency (ER) | payer OTHER, MEDICARE ==
[2020-09-28 10:04] LABS: Absolute Lymphocytes (CBC) 1.9 K/uL (0.7-4.9); Basophils % 0.6 % (0-1.3); Hematocrit 42.1 % (36.0-45.0); Lymphocytes % 20.9 % (15.3-44.8); MPV 8.2 fL (7.6-11.3); RBC Red Blood Cell Count 4.78 M/uL (3.86-4.86)
[2020-09-28 10:13] LABS: Protime INR 0.98
[2020-09-28 10:30] LABS: ALT/SGPT 30 U/L (12-78); AST/SGOT 21 U/L (15-37); Albumin 3.7 g/dL (3.4-5.0); Alkaline Phosphatase 100 U/L (45-117); BUN Blood Urea Nitrogen 11 mg/dL (7-18); Bicarbonate 25 mmol/L (21-32); Bilirubin Direct < 0.1 mg/dL (0-0.2); Bilirubin Total 0.4 mg/dL (0.2-1.0); Glucose Level 120 mg/dL (74-106); NT PRO-BNP 229 pg/mL (<450); Potassium 3.5 mmol/L (3.5-5.1); Protein, Total 7.9 g/dL (6.4-8.2); Sodium Level 138 mmol/L (136-145); Troponin (Emerg Dept Use Only) < 0.02 ng/mL (0.0-0.045)
--- NOTE | 2020-09-28 10:41 | RAD REPORT ---
EXAM DESCRIPTION: Stephanie Single View09/28/2020 10:17 am CLINICAL HISTORY: Chest pain COMPARISON: July 2020 FINDINGS: The lungs appear clear of acute infiltrate. The heart is normal size IMPRESSION: No acute abnormalities displayed
--- NOTE | 2020-09-28 14:52 | EDPHYS ---
Physician Documentation [facility] Name: Faith Moreira Age: 80 yrs Sex: Female : 1940 Arrival Date: 09/28/2020 Time: 09:32 Bed 19 Private MD: Thierry De Dios V ED Physician Augustin Adams HPI: 09/28 09:57 This 80 yrs old Female presents to ER via Ambulatory with complaints of Chest pm1 Pain. 09:57 The patient or guardian reports chest pain that is located primarily in the anterior pm1 aspect of left upper chest and mid-sternal area. Onset: this morning, 30 minute(s) ago. The pain does not radiate. Associated signs and symptoms: Pertinent positives: nausea, palpitations, shortness of breath, Pertinent negatives: abdominal pain, cough, diaphoresis, dizziness, headache, vomiting. The chest pain is described as a pressure. Duration: The patient or guardian reports a single episode, that lasted 20 minute(s). Modifying factors: The symptoms are alleviated by nothing. the symptoms are aggravated by nothing. Severity of pain: in the emergency department the pain has resolved and did so just prior to arrival. The patient has experienced similar episodes in the past, a few times. Historical: - Allergies: 09:35 Codeine; aa5 - PMHx: 09:35 Hypertension; Hypothyroidism; aa5 - PSHx: 09:35 Hysterectomy; aa5 - Immunization history:: Adult Immunizations up to date. - Social history:: Smoking status: Patient denies any tobacco usage or history of. ROS: 09:57 Constitutional: Negative for fever, chills, and weight loss. pm1 09:57 Cardiovascular: Positive for chest pain, palpitations, Negative for edema. 09:57 Back: Negative for injury and pain, : Negative for injury, bleeding, discharge, and pm1 swelling, MS/Extremity: Negative for injury and deformity, Skin: Negative for injury, rash, and discoloration, Neuro: Negative for headache, weakness, numbness, tingling, and seizure. 09:57 Respiratory: Positive for shortness of breath, Negative for cough. 09:57 Abdomen/GI: Positive for nausea, Negative for abdominal pain, vomiting, diarrhea, constipation. Exam: 09:57 Constitutional: This is a well developed, well nourished patient who is awake, alert, pm1 and in no acute distress. Head/Face: Normocephalic, atraumatic. Chest/axilla: Normal chest wall appearance and motion. Nontender with no deformity. No lesions are appreciated. 09:57 Back: No spinal tenderness. No costovertebral tenderness. Full range of motion. Skin: Warm, dry with normal turgor. Normal color with no rashes, no lesions, and no evidence of cellulitis. MS/ Extremity: Pulses equal, no cyanosis. Neurovascular intact. Full, normal range of motion. 09:57 Cardiovascular: Exam negative for acute changes, Rate: normal, Rhythm: regular, Pulses: no pulse deficits are appreciated, Heart sounds: normal, Edema: is not appreciated. 09:57 Respiratory: Exam negative for acute changes, respiratory distress, shortness of breath. 09:57 Abdomen/GI: Exam negative for acute changes, Inspection: abdomen appears normal, Palpation: abdomen is soft and non-tender, in all quadrants. 09:57 Neuro: Exam negative for acute changes, Orientation: is normal, Mentation: is normal, Motor: is normal, moves all fours. Vital Signs: 09:55 BP 146 / 80; Pulse 75; Resp 20; Temp 98; Pulse Ox 95% ; sv 11:30 BP 125 / 74; Pulse 85; Resp 18; Pulse Ox 99% ; sv 12:56 Pulse 93; Resp 18; Pulse Ox 100% ; sv 14:00 BP 118 / 70; Pulse 88; Resp 16; Pulse Ox 99% ; sv MDM: 09:43 Patient medically screened. pm1 10:53 Data reviewed: vital signs. Data interpreted: Pulse oximetry: on room air is 95 %. pm1 Interpretation: normal. 10:53 Counseling: I had a detailed discussion with the patient and/or guardian regarding: the pm1 historical points, exam findings, and any diagnostic results supporting the discharge/admit diagnosis, lab results, radiology results, the need for further work-up and treatment in the hospital. 10:53 Refusal of service: The patient/guardian displays adequate decision making capability pm1 and despite a detailed discussion of alternatives, benefits, risks, and consequences refuses: Admission to the hospital for further work-up and treatment, Patient would like to go home now. I told the patient that I do not recommend that and I would like her to stay in the hospital for further evaluation and treatment. Daughter is at bedside and supports her mother's decision. I discussed further with them that if she will not stay in the hospital could she at least stay in the ER for a repeat 4 hour troponin. Patient wants to discuss that decision further with her daughter because she wants to go home now . 11:36 ED course: Patient does not want to be hospitalized but has agreed to stay for a repeat pm1 troponin. 14:42 Refusal of service: The patient/guardian displays adequate decision making capability pm1 and despite a detailed discussion of alternatives, benefits, risks, and consequences refuses: Admission to the hospital for further work-up and treatment. 14:42 ED course: Daughter at bedside and supports her mother's decision. pm1 14:42 ED course: Explained to patient and daughter that negative second troponin indicates no pm1 heart damage but does not rule out any problems with the heart. I told them that even though I was able to convince her to stay for a repeat troponin, I want her to stay in the hospital for further evaluation and treatment which includes evaluation by a direct support staff member. She does not want to stay in the hospital and her daughter understands and supports her decision. Patient denies any chest pain or complaints. 19:58 ED course: Patient's daughter called inquiring if a urine sample was analyzed at pm1 today's visit. Informed her that it was not done and a urinalysis is not a typical order for a chest pain work up due to minimizing the use of inappropriate antibiotics for asymptomatic cases. Daughter said that she may not report urinary symptoms due to dementia. Informed her that is why I attempted multiple times to convince the patient and her daughter to be hospitalized for further evaluation and treatment . 09/28 09:43 Order name: Basic Metabolic Panel; Complete Time: 10:59 pm1 09/28 09:43 Order name: CBC with Diff; Complete Time: 10:42 pm1 09/28 09:43 Order name: LFT's; Complete Time: 10:59 pm1 09/28 09:43 Order name: Magnesium; Complete Time: 10:59 pm1 09/28 09:43 Order name: NT PRO-BNP; Complete Time: 10:59 pm1 09/28 09:43 Order name: PT-INR; Complete Time: 10:42 pm1 09/28 09:43 Order name: Troponin (emerg Dept Use Only); Complete Time: 10:59 pm1 09/28 09:43 Order name: XRAY Chest (1 view); Complete Time: 10:42 pm1 09/28 09:43 Order name: EKG; Complete Time: 09:44 pm1 09/28 09:43 Order name: Cardiac monitoring; Complete Time: 09:57 pm1 09/28 09:43 Order name: EKG - Nurse/Tech; Complete Time: 09:57 pm1 09/28 09:44 Order name: TSH; Complete Time: 10:59 pm1 09/28 10:42 Order name: T4 Free; Complete Time: 10:59 EDMS 09/28 12:56 Order name: Troponin (emerg Dept Use Only): to be drawn at 1400; Complete Time: 14:42 sv 09/28 09:43 Order name: IV Saline Lock; Complete Time: 09:57 pm1 09/28 09:43 Order name: Labs collected and sent; Complete Time: 09:57 pm1 09/28 09:43 Order name: O2 Per Protocol; Complete Time: 09:57 pm1 09/28 09:43 Order name: O2 Sat Monitoring; Complete Time: 09:57 pm1 Administered Medications: No medications were administered Disposition: 15:18 Co-signature as Attending Physician, Augustin Adams MD. rn Disposition: 09/28/20 14:51 Discharged to Home. Impression: Chest pain, unspecified. - Condition is Stable. - Discharge Instructions: Nonspecific Chest Pain. - Medication Reconciliation Form, Thank You Letter, Antibiotic Education, Prescription Opioid Use form. - Follow up: Emergency Department; When: As needed; Reason: Worsening of condition. Follow up: Private Physician; When: 2 - 3 days; Reason: Recheck today's complaints, Continuance of care, Re-evaluation by your physician. - Problem is new. - Symptoms have improved. Signatures: Dispatcher [employer] Jessica Maddox, RN Augustin Sutherland MD MD rn Calderon, Audri, RN RN aa5 Evan Ponce, [employer] DIVER pm1 Corrections: (The following items were deleted from the chart) 15:01 14:51 09/28/2020 14:51 Discharged to Home. Impression: Chest pain, unspecified. aa5 Condition is Stable. Forms are Medication Reconciliation Form, Thank You Letter, Antibiotic Education, Prescription Opioid Use. Follow up: Emergency Department; When: As needed; Reason: Worsening of condition. Follow up: Private Physician; When: 2 - 3 days; Reason: Recheck today's complaints, Continuance of care, Re-evaluation by your physician. Problem is new. Symptoms have improved. pm1
--- NOTE | 2020-09-28 14:52 | ER ---
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 aa5 Pt currently denies chest pain. Reports anxiety. 09:35 Onset of symptoms was September 28, 2020. aa5 09:35 Acuity: PAUL 3 aa5 09:35 Method Of Arrival: Ambulatory aa5 :55 Coronavirus screen: Client denies travel out of the [place] in the last 14 days. At this sv time, the client does not indicate any symptoms associated with coronavirus-19. Ebola Screen: No symptoms or risks identified at this time. Initial Sepsis Screen: Does the patient meet any 2 criteria? No. Patient's initial sepsis screen is negative. Does the patient have a suspected source of infection? No. Patient's initial sepsis screen is negative. Risk Assessment: Do you want to hurt yourself or someone else? Patient reports no desire to harm self or others. Triage Assessment: 09:38 General: Appears in no apparent distress. comfortable, well groomed, well developed, sv Behavior is calm, cooperative, appropriate for age. Pain: Denies pain. Neuro: Level of Consciousness is awake, alert, obeys commands, Oriented to person, place, time, situation, Moves all extremities. Full function Gait is steady, Speech is normal. Cardiovascular: Denies chest pain, palpitations, shortness of breath. Cardiovascular: Rhythm is sinus rhythm. Respiratory: Respiratory effort is even, unlabored, Respiratory pattern is regular, symmetrical. Derm: Skin is intact, Skin is pink, warm \T\ dry. Musculoskeletal: Range of motion: intact in all extremities. Historical: - Allergies: :35 Codeine; aa5 - PMHx: :35 Hypertension; Hypothyroidism; aa5 - PSHx: 09:35 Hysterectomy; aa5 - Immunization history:: Adult Immunizations up to date. - Social history:: Smoking status: Patient denies any tobacco usage or history of. Screenin:55 Abuse screen: Denies threats or abuse. Denies injuries from another. Nutritional sv screening: No deficits noted. Tuberculosis screening: No symptoms or risk factors identified. Fall Risk None identified. Assessment: 10:44 Reassessment: Patient appears in no apparent distress at this time. No changes from sv previously documented assessment. Patient and/or family updated on plan of care and expected duration. Pain level reassessed. Patient is alert, oriented x 3, equal unlabored respirations, skin warm/dry/pink. 11:30 Reassessment: Pt stated that we would do a 4 hour troponin from the last troponin. sv 11:55 Reassessment: Patient appears in no apparent distress at this time. No changes from sv previously documented assessment. Patient and/or family updated on plan of care and expected duration. Pain level reassessed. Patient is alert, oriented x 3, equal unlabored respirations, skin warm/dry/pink. 13:00 Reassessment: Patient appears in no apparent distress at this time. No changes from sv previously documented assessment. Patient and/or family updated on plan of care and expected duration. Pain level reassessed. Patient is alert, oriented x 3, equal unlabored respirations, skin warm/dry/pink. 14:10 Reassessment: Patient appears in no apparent distress at this time. No changes from sv previously documented assessment. Patient and/or family updated on plan of care and expected duration. Pain level reassessed. Patient is alert, oriented x 3, equal unlabored respirations, skin warm/dry/pink. 15:00 Reassessment: Patient is alert, oriented x 3, equal unlabored respirations, skin aa5 warm/dry/pink. Vital Signs: 09:55 BP 146 / 80; Pulse 75; Resp 20; Temp 98; Pulse Ox 95% ; sv 11:30 BP 125 / 74; Pulse 85; Resp 18; Pulse Ox 99% ; sv 12:56 Pulse 93; Resp 18; Pulse Ox 100% ; sv 14:00 BP 118 / 70; Pulse 88; Resp 16; Pulse Ox 99% ; sv ED Course: 09:32 Patient arrived in ED. ag5 09:32 Thierry De Dios MD is Private Physician. ag5 09:35 Jessica Salmon, ELIO is Primary Nurse. sv 09:35 Arm band placed on Patient placed in an exam room. aa5 09:38 Patient has correct armband on for positive identification. Placed in gown. Bed in low sv position. Call light in reach. Side rails up X2. Adult w/ patient. payment collector on. Pulse ox on. NIBP on. Door closed. Head of bed elevated. 09:38 EKG done, by ED staff, reviewed by Evan Ponce NP. sv 09:38 Patient maintains SpO2 saturation greater than 95% on room air. sv 09:42 Triage completed. aa5 09:42 Evan Ponce NP is PHCP. pm1 09:42 Augustin Adams MD is Attending Physician. pm1 09:57 Initial lab(s) drawn, by me, sent to lab. Inserted saline lock: 20 gauge in right em1 forearm, using aseptic technique. Blood collected. 10:05 X-ray(s) taken. sv 10:17 XRAY Chest (1 view) In Process Unspecified. EDMS 10:43 Awaiting disposition, Awaiting re-evaluation by ER provider. sv 14:10 Repeat lab(s) drawn. by me, sent to lab. sv 15:00 No provider procedures requiring assistance completed. IV discontinued, intact, aa5 bleeding controlled, No redness/swelling at site. Pressure dressing applied. Administered Medications: No medications were administered Outcome: 14:51 Discharge ordered by MD. pm1 15:00 Discharged to home ambulatory. aa5 15:00 Condition: stable 15:00 Discharge instructions given to patient, Instructed on discharge instructions, follow up and referral plans. Demonstrated understanding of instructions, follow-up care. 15:01 Patient left the ED. aa5 Signatures: Dispatcher [employer] EDVT Jessica Salmon RN RN sv Martinez, Eric em1 Estelle Parada RN RN aa5 Evan Ponce NP CHEMISTRY QUALITY CONTROL TECHNICIAN pm1 Hamlet Finch ag5
[2020-09-28 15:42] VITALS: TEMP 98
[2020-09-28 15:43] VITALS: BP 125/74
[2020-09-28 15:46] VITALS: O2SAT 100
== END 2020-09-28 15:01 | disposition home or self-care (01) ==
LOC: ER 09:30
DX: R07.9 Chest pain, unspecified (principal); Z88.6 Allergy status to analgesic agent
CPT/HCPCS: 36415; 71045; 80048; 80076; 83735; 83880; 84439; 84443; 84484; 85025; 85610; 93005; 99285

== ENCOUNTER 2020-11-27 13:57 | Emergency (ER) | payer OTHER, MEDICARE ==
[2020-11-27 15:46] LABS: Basophils % 0.7 % (0-1.3); Hematocrit 42.4 % (36.0-45.0); Lymphocytes % 21.2 % (15.3-44.8); MPV 8.4 fL (7.6-11.3)
[2020-11-27] MEDS ORDERED: NA CHLORIDE 0.9% 250 ML ONE (16:03)
[2020-11-27] MEDS ORDERED: MORPHINE 2 MG/ML SYR ONE (16:07)
[2020-11-27] MEDS ORDERED: CYCLOBENZAPRINE 10 MG TAB ONE (16:07)
[2020-11-27 16:53] LABS: ALT/SGPT 28 U/L (12-78); Albumin 3.5 g/dL (3.4-5.0); Alkaline Phosphatase 92 U/L (45-117); BUN Blood Urea Nitrogen 12 mg/dL (7-18); Bicarbonate 24 mmol/L (21-32); Bilirubin Direct < 0.1 mg/dL (0-0.2); Bilirubin Total 0.5 mg/dL (0.2-1.0); Glucose Level 107 mg/dL (74-106); Lipase 150 U/L (73-393); Protein, Total 7.4 g/dL (6.4-8.2); Sodium Level 141 mmol/L (136-145)
[2020-11-27 16:54] LABS: AST/SGOT 26 U/L (15-37); Potassium 3.6 mmol/L (3.5-5.1)
[2020-11-27 17:09] LABS: Urine Blood TRACE (NEG); Urine Glucose NEGATIVE (NEG); Urine Protein NEGATIVE (NEG); Urine Specific Gravity 1.015 (1.005-1.030); Urine pH 8.5 (5.0-7.0)
--- NOTE | 2020-11-27 17:32 | RAD REPORT ---
EXAM DESCRIPTION: CT - Abdomen Pelvis W Contrast - 11/27/2020 5:14 pm CLINICAL HISTORY: Abdominal pain /left flank pain COMPARISON: July 2020 TECHNIQUE: Computed axial tomography of the abdomen pelvis was obtained. 100 cc Isovue-300 was admin istered intravenously. Oral contrast was not requested which limits evaluation of bowel. All CT scans are performed using dose optimization technique as appropriate and may include automated exposure control or mA/KV adjustment according to patient size. FINDINGS: The liver, spleen, pancreas, adrenal and left kidney appear unremarkable. 1 millimeter non obstructing right renal calculus There is no evidence of diverticulitis. Small hiatal hernia. Spondylosis involves the lumbar spine resulting in spinal stenosis. Small inguinal hernias contain fat IMPRESSION: No acute abnormality is displayed.
--- NOTE | 2020-11-27 17:53 | EDPHYS ---
Physician Documentation [facility] Name: Faith Moreira Age: 80 yrs Sex: Female : 1940 Arrival Date: 11/27/2020 Time: 14:00 Bed 27 Private MD: ED Physician Bartolo Jones HPI: 11/27 15:49 This 80 yrs old Female presents to ER via EMS with complaints of Flank Pain. kdr 15:49 The patient complains of pain in the left mid back. Location: left mid back. Onset: The kdr symptoms/episode began/occurred last night. Modifying factors: The symptoms are alleviated by remaining still, the symptoms are aggravated by movement, palpation/percussion. Associated signs and symptoms: The patient has no apparent associated signs or symptoms. Severity of pain: At its worst the pain was severe incapacitating just prior to arrival, today, in the emergency department the pain has improved mildly. The patient has not experienced similar symptoms in the past. The patient has not recently seen a physician. Historical: - Allergies: 14:40 Codeine; zb - Home Meds: 14:40 levothyroxine oral [Active]; lisinopril Oral [Active]; Lorazepam Oral [Active]; zb - PMHx: 14:40 Hypertension; Hypothyroidism; Alzheimers; zb - PSHx: 14:40 Unable to obtain; zb - Immunization history:: Adult Immunizations up to date. - Social history:: Smoking status: unknown. ROS: 15:49 Constitutional: Negative for fever, chills, and weight loss, Eyes: Negative for injury, kdr pain, redness, and discharge, ENT: Negative for injury, pain, and discharge, Neck: Negative for injury, pain, and swelling, Cardiovascular: Negative for chest pain, palpitations, and edema, Respiratory: Negative for shortness of breath, cough, wheezing, and pleuritic chest pain, Abdomen/GI: Negative for abdominal pain, nausea, vomiting, diarrhea, and constipation, : Negative for injury, bleeding, discharge, and swelling, MS/Extremity: Negative for injury and deformity, Skin: Negative for injury, rash, and discoloration, Neuro: Negative for headache, weakness, numbness, tingling, and seizure activity. Psych: Negative for depression, anxiety, suicide ideation, homicidal ideation, and hallucinations, Allergy/Immunology: Negative for hives, rash, and allergies, Endocrine: Negative for neck swelling, polydipsia, polyuria, polyphagia, and marked weight changes, Hematologic/Lymphatic: Negative for swollen nodes, abnormal bleeding, and unusual bruising. 15:49 Back: Positive for pain at rest, pain with movement, radiated pain, of the left mid back. Exam: 15:49 Constitutional: This is a well developed, well nourished patient who is awake, alert, kdr and in no acute distress. Head/Face: Normocephalic, atraumatic. Eyes: Pupils equal round and reactive to light, extra-ocular motions intact. Lids and lashes normal. Conjunctiva and sclera are non-icteric and not injected. Cornea within normal limits. Periorbital areas with no swelling, redness, or edema. Neck: Trachea midline, no thyromegaly or masses palpated, and no cervical lymphadenopathy. Supple, full range of motion without nuchal rigidity, or vertebral point tenderness. No Meningismus. Cardiovascular: Regular rate and rhythm with a normal S1 and S2. No gallops, murmurs, or rubs. Normal PMI, no JVD. No pulse deficits. Respiratory: Lungs have equal breath sounds bilaterally, clear to auscultation and percussion. No rales, rhonchi or wheezes noted. No increased work of breathing, no retractions or nasal flaring. Abdomen/GI: Soft, non-tender, with normal bowel sounds. No distension or tympany. No guarding or rebound. No evidence of tenderness throughout. Skin: Warm, dry with normal turgor. Normal color with no rashes, no lesions, and no evidence of cellulitis. MS/ Extremity: Pulses equal, no cyanosis. Neurovascular intact. Full, normal range of motion. Neuro: Awake and alert, GCS 15, oriented to person, place, time, and situation. Cranial nerves II-XII grossly intact. Motor strength 5/5 in all extremities. Sensory grossly intact. Cerebellar exam normal. Normal gait. Psych: Awake, alert, with orientation to person, place and time. Behavior, mood, and affect are within normal limits. 15:49 Chest/axilla: Inspection: normal, Palpation: tenderness, that is mild, of the left lateral posterior chest. Vital Signs: 14:24 BP 145 / 69; Pulse 72; Resp 16; Temp 98.6; Pulse Ox 95% on R/A; Weight 74.84 kg; Height zb 5 ft. 2 in. (157.48 cm); Pain 4/10; 15:00 BP 148 / 64; Pulse 72; Resp 16; Pulse Ox 97% on R/A; zb 16:00 BP 169 / 75; Pulse 72; Resp 16; Pulse Ox 99% on R/A; zb 17:00 BP 186 / 73; Pulse 66; Resp 16; Pulse Ox 98% on R/A; zb 18:00 BP 162 / 79; Pulse 73; Resp 16; Pulse Ox 96% on R/A; zb 14:24 Body Mass Index 30.18 (74.84 kg, 157.48 cm) zb MDM: 15:49 Data reviewed: vital signs, nurses notes, lab test result(s), EKG, radiologic studies. kdr Counseling: I had a detailed discussion with the patient and/or guardian regarding: the historical points, exam findings, and any diagnostic results supporting the discharge/admit diagnosis, lab results, radiology results. 17:53 Patient medically screened. kdr 11/27 14:41 Order name: Urine Dipstick--Ancillary (enter results); Complete Time: 17:52 em1 11/27 14:56 Order name: Basic Metabolic Panel; Complete Time: 17:52 kdr 11/27 14:56 Order name: CBC with Diff; Complete Time: 16:44 kdr 11/27 14:56 Order name: Hepatic Function; Complete Time: 17:52 kdr 11/27 14:56 Order name: Lipase; Complete Time: 17:52 kdr 11/27 18:55 Order name: COVID-19 zb 11/27 14:56 Order name: IV Saline Lock; Complete Time: 15:28 kdr 11/27 14:56 Order name: Labs collected and sent; Complete Time: 15:28 kdr 11/27 14:56 Order name: Urine Dipstick-Ancillary (obtain specimen); Complete Time: 14:58 kdr 11/27 14:56 Order name: CT Abd/Pelvis - IV Contrast Only; Complete Time: 17:52 kdr Administered Medications: 16:09 Drug: Flexeril 5 mg Route: PO; zb 19:09 Follow up: Response: No adverse reaction zb 16:09 Drug: morphine 2 mg Route: IVP; Site: right antecubital; zb 16:30 Follow up: Response: No adverse reaction zb 16:10 Drug: NS 0.9% 250 ml Route: IV; Rate: bolus; Site: right antecubital; zb 17:00 Follow up: Response: No adverse reaction; IV Status: Completed infusion; IV Intake: zb 250ml Disposition: 11/27/20 17:53 Discharged to Home. Impression: Myofacial pain, back pain, Musculoskeletal pain. - Condition is Stable. - Discharge Instructions: Myofascial Pain Syndrome and Fibromyalgia, Musculoskeletal Pain, Back Pain, Adult, [id number]. - Prescriptions for Ibuprofen 600 mg Oral Tablet - take 1 tablet by ORAL route every 6 hours As needed take with food; 30 tablet. - Medication Reconciliation Form, Thank You Letter form. - Follow up: Private Physician; When: 2 - 3 days; Reason: If symptoms return, Further diagnostic work-up, Recheck today's complaints, Continuance of care, Re-evaluation by your physician. - Problem is new. - Symptoms have improved. Signatures: Dispatcher [employer] EDMS Bartolo Jones MD MD kdr Brown, Zipporah, RN RN zb Corrections: (The following items were deleted from the chart) 19:11 17:53 11/27/2020 17:53 Discharged to Home. Impression: Myofacial pain, back pain, zb Musculoskeletal pain. Condition is Stable. Forms are Medication Reconciliation Form, Thank You Letter, Antibiotic Education, Prescription Opioid Use. Follow up: Private Physician; When: 2 - 3 days; Reason: If symptoms return, Further diagnostic work-up, Recheck today's complaints, Continuance of care, Re-evaluation by your physician. Problem is new. Symptoms have improved. kdr
--- NOTE | 2020-11-27 17:53 | ER ---
Nurse's Notes [facility] Name: Faith Moreira Age: 80 yrs Sex: Female : 1940 Arrival Date: 11/27/2020 Time: 14:00 Bed 27 Private MD: Diagnosis: Myofacial pain, back pain, Musculoskeletal pain Presentation: 11/27 14:13 Chief complaint: Chief complaint: EMS states: caregiver called EMS after hearing zb patient scream. patient found in bed c/o of left flank pain. caregiver was unsure if patient fell. patient has history dementia, history of falls. no bruises or contusions noted. 14:13 Acuity: PALU 3 zb 14:24 Coronavirus screen: At this time, the client does not indicate any symptoms associated zb with coronavirus-19. Ebola Screen: No symptoms or risks identified at this time. Initial Sepsis Screen: Does the patient meet any 2 criteria? No. Patient's initial sepsis screen is negative. Does the patient have a suspected source of infection? No. Patient's initial sepsis screen is negative. Onset of symptoms was November 27, 2020. 14:24 Method Of Arrival: EMS: [facility] zb 14:24 Risk Assessment: Do you want to hurt yourself or someone else?. zb Triage Assessment: 14:40 General: Appears in no apparent distress. uncomfortable, Behavior is calm, cooperative, zb appropriate for age. Pain: Complains of pain in left low back and left mid back Pain does not radiate. Pain currently is 4 out of 10 on a pain scale. at worst was 10 out of 10 on a pain scale. Quality of pain is described as aching, tender, Pain began today Is continuous, Aggravated by repositioning. EENT: No signs and/or symptoms were reported regarding the EENT system. Neuro: Level of Consciousness is awake, alert, obeys commands, Oriented to person, place, time, situation. Cardiovascular: Heart tones S1 S2 present Patient's skin is warm and dry. Respiratory: Airway is patent Respiratory effort is even, unlabored, Respiratory pattern is regular, Breath sounds are clear bilaterally. GI: Abdomen is round non-distended, Bowel sounds present X 4 quads. Abdomen is tender to palpation in right upper quadrant. : No signs and/or symptoms were reported regarding the genitourinary system. Denies burning with urination, inability to void, incontinence, pain. Derm: No signs and/or symptoms reported regarding the dermatologic system. Musculoskeletal: Circulation, motion, and sensation intact. Capillary refill Range of motion:. Historical: - Allergies: 14:40 Codeine; zb - Home Meds: 14:40 levothyroxine oral [Active]; lisinopril Oral [Active]; Lorazepam Oral [Active]; zb - PMHx: 14:40 Hypertension; Hypothyroidism; Alzheimers; zb - PSHx: 14:40 Unable to obtain; zb - Immunization history:: Adult Immunizations up to date. - Social history:: Smoking status: unknown. Screenin:00 Abuse screen: Denies threats or abuse. Denies injuries from another. Nutritional zb screening: No deficits noted. Tuberculosis screening: No symptoms or risk factors identified. Fall Risk Fall in past 12 months (25 points). Secondary diagnosis (15 points) Alzheimer's, IV access (20 points). Ambulatory Aid- None/Bed Rest/Nurse Assist (0 pts). Gait- Normal/Bed Rest/Wheelchair (0 pts) Mental Status- Overestimates/Forgets Limitations (15 pts.). Total Zuleta Fall Scale indicates High Risk Score (45 or more points). Fall prevention measures have been instituted. Side Rails Up X 2 Placed Close to Nursing Station Frequent Obs/Assessments Occuring Family Present and informed to notify staff if the need to leave the bedside As available patient and family educated on Fall Prevention Program and Strategies. Assessment: 15:00 Reassessment: See triage note. zb 16:00 Reassessment: Patient appears in no apparent distress at this time. Patient and/or zb family updated on plan of care and expected duration. Pain level reassessed. Patient is alert, oriented x 3, equal unlabored respirations, skin warm/dry/pink. caregiver at bedside. 17:00 Reassessment: Patient appears in no apparent distress at this time. Patient and/or zb family updated on plan of care and expected duration. Pain level reassessed. Patient is alert, oriented x 3, equal unlabored respirations, skin warm/dry/pink. daughter at bedside. patient is starting to experience some anxiety. 17:59 Reassessment: ECP at bedside. family present. zb 18:00 Reassessment: Patient appears in no apparent distress at this time. Patient and/or zb family updated on plan of care and expected duration. Pain level reassessed. Patient is alert, oriented x 3, equal unlabored respirations, skin warm/dry/pink. family at bedside. patient ambulated w/ assistance. 19:00 Reassessment: Patient appears in no apparent distress at this time. Patient and/or zb family updated on plan of care and expected duration. Pain level reassessed. Patient is alert, oriented x 3, equal unlabored respirations, skin warm/dry/pink. family at bedside. pt covid swab. d/c instruction given to family. pt wheel out w/ family. Vital Signs: 14:24 BP 145 / 69; Pulse 72; Resp 16; Temp 98.6; Pulse Ox 95% on R/A; Weight 74.84 kg; Height zb 5 ft. 2 in. (157.48 cm); Pain 4/10; 15:00 BP 148 / 64; Pulse 72; Resp 16; Pulse Ox 97% on R/A; zb 16:00 BP 169 / 75; Pulse 72; Resp 16; Pulse Ox 99% on R/A; zb 17:00 BP 186 / 73; Pulse 66; Resp 16; Pulse Ox 98% on R/A; zb 18:00 BP 162 / 79; Pulse 73; Resp 16; Pulse Ox 96% on R/A; zb 14:24 Body Mass Index 30.18 (74.84 kg, 157.48 cm) zb ED Course: 14:00 Patient arrived in ED. em1 14:09 Bartolo Jones MD is Attending Physician. kdr 14:13 Basilia Omalley RN is Primary Nurse. zb 14:15 Arm band placed on. zb 14:23 Triage completed. zb 15:00 Pulse ox on. NIBP on. Door closed. Noise minimized. Warm blanket given. Pillow given. zb 15:10 Patient has correct armband on for positive identification. Call light in reach. Side zb rails up X 1. 15:28 Inserted saline lock: 20 gauge in right forearm, using aseptic technique. Blood dh4 collected. 17:15 CT Abd/Pelvis - IV Contrast Only In Process Unspecified. EDMS 18:50 No provider procedures requiring assistance completed. IV discontinued, intact, zb bleeding controlled, No redness/swelling at site. Pressure dressing applied. Administered Medications: 16:09 Drug: Flexeril 5 mg Route: PO; zb 19:09 Follow up: Response: No adverse reaction zb 16:09 Drug: morphine 2 mg Route: IVP; Site: right antecubital; zb 16:30 Follow up: Response: No adverse reaction zb 16:10 Drug: NS 0.9% 250 ml Route: IV; Rate: bolus; Site: right antecubital; zb 17:00 Follow up: Response: No adverse reaction; IV Status: Completed infusion; IV Intake: zb 250ml Intake: 17:00 IV: 250ml; Total: 250ml. zb Outcome: 17:53 Discharge ordered by . kdr 18:51 Discharged to home ambulatory. zb 18:51 Condition: stable 18:51 Discharge instructions given to patient, family, Instructed on discharge instructions, follow up and referral plans. medication usage, Demonstrated understanding of instructions, follow-up care, medications, Prescriptions given X 1. 19:11 Patient left the ED. zb Addendum: 12/01/2020 11:42 Addendum: COVID-19 Result: Negative result given to RN to notify pt. Notified pt of i w negative COVID 19 swab results. Pt advised that even with a negative test result they should remain in isolation until symptom free for 3 days without medication. Pt also advised to return to the ED for worsening symptoms. Signatures: Dispatcher [employer] EDMS Bartolo Jones MD MD kdr Williams, Irene, RN RN iw Martinez, Eric 1 Ishan Valencia 4 Basilia Omalley RN RN zb Corrections: (The following items were deleted from the chart) 11/27 14:27 14:13 Chief complaint: zb zb 18:51 18:51 Discharge instructions given to patient, Instructed on discharge instructions, zb follow up and referral plans. medication usage, Demonstrated understanding of instructions, follow-up care, medications, Prescriptions given X 1, zb
[2020-11-27 19:26] VITALS: TEMP 98.6
[2020-11-27 19:30] VITALS: BP 162/79; O2SAT 96
== END 2020-11-27 19:11 | disposition home or self-care (01) ==
LOC: ER 13:57
DX: M79.18 Myalgia, other site (principal); I10 Essential (primary) hypertension; E03.9 Hypothyroidism, unspecified; G30.9 Alzheimer's disease, unspecified; F02.80 Dementia in other diseases classified elsewhere, unspecified severity, without behavioral disturbance, psychotic disturbance, mood disturbance, and anxiety; Z88.5 Allergy status to narcotic agent; Z20.822 Contact with and (suspected) exposure to COVID-19
CPT/HCPCS: 96365; 85025; 80048; 36415; 80076; 81003; 83690; 74177; 96375; 99284; U0002; Q9967; J2270; J7050

== ENCOUNTER 2020-12-14 14:22 | Emergency (ER) | payer OTHER, MEDICARE ==
--- OUTSIDE RECORDS SUMMARY | 2020-12-14 14:27 | XMS REPORT | Clinical Summary ---
:1940 Author Organization [facility] Address [address] [place] [address] Care Team Providers Name Role Phone Unavailable Primary Care Provider Unavailable Allergies Not on File Medications Not on file Active Problems Not on file Encounters Date Type Specialty Care Team Description 12/12/2020 Immunization Pharmacy Covid Employee, Rafiq harding for immunization MD Brody (Primary Dx) after 12/14/2019 Immunizations Name Administration Dates Next Due Covid-19 Vaccine Mrna (Pf) (Pfizer/biontech) 12/12/2020 Social History Tobacco Use Types Packs/Day Years Used Date Never Assessed Sex Assigned at Date Recorded Not on file Last Filed Vital Signs Not on file Plan of Treatment Health Maintenance Due Date Last Done Comments DTAP/TDAP/TD VACCINES (1 - Tdap) 1945 PNEUMOCOCCAL 65+ YRS (1 of 1 - [id number]) 2003 INFLUENZA VACCINE (#1) 2020 DEPRESSION SCREENING (12+) 11/14/2020 COVID-19 VACCINE (2 of 2 - Pfizer series) 01/02/20212020 Results Not on fileafter 12/14/2019 Insurance Payer Benefit Plan / Subscriber ID Effective Dates Phone Addre ss Type Group COVID VACCINE COVID VACCINE [id number] 12/12/2020-Present ADMIN / TESTING ADMIN / TESTING
--- NOTE | 2020-12-14 15:45 | RAD REPORT ---
EXAM DESCRIPTION: RAD - Elbow Left 3 View - 12/14/2020 3:37 pm CLINICAL HISTORY: Left elbow pain status post trauma FINDINGS: No fracture or dislocation is seen.
--- NOTE | 2020-12-14 15:46 | RAD REPORT ---
EXAM DESCRIPTION: RAD - Wrist Left 3 View - 12/14/2020 3:37 pm CLINICAL HISTORY: Left wrist pain status post injury FINDINGS: Moderate comminuted intra-articular distal radial fracture. No dislocation
--- NOTE | 2020-12-14 16:14 | EDPHYS ---
Physician Documentation [facility] Name: Faith Moreira Age: 80 yrs Sex: Female : 1940 Arrival Date: 12/14/2020 Time: 14:27 Bed 8 Private MD: ED Physician Sree Francis HPI: 12/14 15:32 This 80 yrs old Female presents to ER via Wheelchair with complaints of Fall pm1 Injury, Wrist Injury. 15:32 Details of fall: The patient fell from an upright position, while walking. Onset: The pm1 symptoms/episode began/occurred just prior to arrival. Associated injuries: The patient sustained left wrist. Severity of symptoms: in the emergency department the symptoms are unchanged. The patient has not experienced similar symptoms in the past. Patient tripped outside. Presented with pain and swelling to left wrist. No headache, head injury, neck pain, LOC. Historical: - Allergies: 14:32 Codeine; ll1 - PMHx: 14:32 Hypertension; Hypothyroidism; Dementia; ll1 - PSHx: 14:32 Hysterectomy; Thyroidectomy; ll1 - Immunization history:: Flu vaccine is up to date. - Social history:: Smoking status: Patient denies any tobacco usage or history of. ROS: 15:32 Constitutional: Negative for fever, chills, and weight loss, Cardiovascular: Negative pm1 for chest pain, palpitations, and edema, Respiratory: Negative for shortness of breath, cough, wheezing, and pleuritic chest pain, Abdomen/GI: Negative for abdominal pain, nausea, vomiting, diarrhea, and constipation, Back: Negative for injury and pain. 15:32 Skin: Negative for injury, rash, and discoloration. 15:32 MS/extremity: Positive for pain, of the left wrist, Negative for decreased range of motion, deformity. 15:32 Neuro: Negative for headache, loss of consciousness, numbness, tingling, weakness. Exam: 15:32 Constitutional: This is a well developed, well nourished patient who is awake, alert, pm1 and in no acute distress. Head/Face: Normocephalic, atraumatic. Neck: Trachea midline, no thyromegaly or masses palpated, and no cervical lymphadenopathy. Supple, full range of motion without nuchal rigidity, or vertebral point tenderness. No Meningismus. Chest/axilla: Normal chest wall appearance and motion. Nontender with no deformity. No lesions are appreciated. 15:32 Back: No spinal tenderness. No costovertebral tenderness. Full range of motion. Skin: Warm, dry with normal turgor. Normal color with no rashes, no lesions, and no evidence of cellulitis. 15:32 Cardiovascular: Rate: normal, Rhythm: regular, Pulses: no pulse deficits are appreciated. 15:32 Respiratory: Exam negative for acute changes, respiratory distress, shortness of breath. 15:32 Abdomen/GI: Inspection: abdomen appears normal, Palpation: abdomen is soft and non-tender, in all quadrants. 15:32 Musculoskeletal/extremity: Extremities: grossly normal except: noted in the left wrist: swelling, tenderness, noted in the left elbow: tenderness, no evidence of decreased ROM, deformity. 15:32 Neuro: Exam negative for acute changes, Orientation: is normal, Motor: is normal, moves all fours. Vital Signs: 14:32 BP 159 / 74; Pulse 93; Resp 17; Temp 98.4; Pulse Ox 96% ; Height 5 ft. 3 in. (160.02 ll1 cm); Pain 8/10; Suresh Coma Score: 15:10 Eye Response: spontaneous(4). Verbal Response: confused(4). Motor Response: obeys sv commands(6). Total: 14. Trauma Score (Adult): 15:10 Eye Response: spontaneous(1); Verbal Response: confused(1); Motor Response: obeys sv commands(2); Systolic BP: > 89 mm Hg(4); Respiratory Rate: 10 to 29 per min(4); Suresh Score: 14; Trauma Score: 12 MDM: 15:01 Patient medically screened. pm1 15:06 ED course: Family member refused pain medications because she is not complaining of pm1 pain at the moment. She took tylenol today. 16:10 Data reviewed: vital signs. pm1 16:10 Counseling: I had a detailed discussion with the patient and/or guardian regarding: the pm1 historical points, exam findings, and any diagnostic results supporting the discharge/admit diagnosis, radiology results, the need for outpatient follow up, for definitive care, a orthopedic surgeon, to return to the emergency department if symptoms worsen or persist or if there are any questions or concerns that arise at home. 12/14 15:02 Order name: Elbow Left 3 View XRAY; Complete Time: 15:51 pm1 12/14 15:02 Order name: Wrist Left (3 View) XRAY; Complete Time: 15:51 pm1 12/14 15:02 Order name: Sling; Complete Time: 15:19 pm1 12/14 15:06 Order name: Ice pack; Complete Time: 15:19 pm1 12/14 15:51 Order name: Splint - Sugar Tong - Forearm; Complete Time: 16:46 pm1 Administered Medications: 17:15 Drug: traMADol 50 mg Route: PO; sv 17:22 Follow up: Response: Medication administered at discharge. sv Disposition: 12/14/20 16:13 Discharged to Home. Impression: Closed moderate comminuted intra-articular distal left radial fracture. - Condition is Stable. - Discharge Instructions: Wrist Fracture Treated With Immobilization, How to Use a Sling. - Prescriptions for Tramadol 50 mg Oral Tablet - take 1 tablet by ORAL route every 8 hours as needed; 12 tablet. - Medication Reconciliation Form, Thank You Letter, Antibiotic Education, Prescription Opioid Use form. - Follow up: Emergency Department; When: As needed; Reason: Worsening of condition. Follow up: Private Physician; When: 2 - 3 days; Reason: Recheck today's complaints, Continuance of care, Re-evaluation by your physician. Follow up: Eduardo Hughes MD; When: 2 - 3 days; Reason: Recheck today's complaints, Continuance of care, Re-evaluation by your physician. - Problem is new. - Symptoms have improved. Addendum: 12/15/2020 18:30 Co-signature as Attending Physician, Sree Francis MD. m a2 Signatures: Dispatcher [employer] EDWI Jessica Salmon RN RN sv Smirch, Shelby, RN RN ss Evan Ponce, OCCUPATIONAL HEALTH AND SAFETY OFFICER OCCUPATIONAL HEALTH AND SAFETY OFFICER pm1 Sree Francis MD MD az2 Waqas Ibarra RN RN ll1 Corrections: (The following items were deleted from the chart) 12/14 16:15 16:13 12/14/2020 16:13 Discharged to Home. Impression: Moderate comminuted pm1 intra-articular distal left radial fracture. Condition is Stable. Forms are Medication Reconciliation Form, Thank You Letter, Antibiotic Education, Prescription Opioid Use. Follow up: Emergency Department; When: As needed; Reason: Worsening of condition. Follow up: Private Physician; When: 2 - 3 days; Reason: Recheck today's complaints, Continuance of care, Re-evaluation by your physician. Follow up: Dr. Eduardo Hughes; When: 2 - 3 days; Reason: Recheck today's complaints, Continuance of care, Re-evaluation by your physician. Problem is new. Symptoms have improved. pm1 17:24 16:15 12/14/2020 16:13 Discharged to Home. Impression: Closed moderate comminuted sv intra-articular distal left radial fracture. Condition is Stable. Discharge Instructions: Wrist Fracture Treated With Immobilization, How to Use a Sling. Prescriptions for Tramadol 50 mg Oral Tablet - take 1 tablet by ORAL route every 8 hours as needed; 12 tablet. and Forms are Medication Reconciliation Form, Thank You Letter, Antibiotic Education, Prescription Opioid Use. Follow up: Emergency Department; When: As needed; Reason: Worsening of condition. Follow up: Private Physician; When: 2 - 3 days; Reason: Recheck today's complaints, Continuance of care, Re-evaluation by your physician. Follow up: Dr. Eduardo Hughes; When: 2 - 3 days; Reason: Recheck today's complaints, Continuance of care, Re-evaluation by your physician. Problem is new. Symptoms have improved. pm1 17:25 17:24 12/14/2020 16:13 Discharged to Home. Impression: Closed moderate comminuted ss intra-articular distal left radial fracture. Condition is Stable. Discharge Instructions: Wrist Fracture Treated With Immobilization, How to Use a Sling. Prescriptions for Tramadol 50 mg Oral Tablet - take 1 tablet by ORAL route every 8 hours as needed; 12 tablet. and Forms are Medication Reconciliation Form, Thank You Letter, Antibiotic Education, Prescription Opioid Use. Follow up: Emergency Department; When: As needed; Reason: Worsening of condition. Follow up: Private Physician; When: 2 - 3 days; Reason: Recheck today's complaints, Continuance of care, Re-evaluation by your physician. Follow up: Dr. Eduardo Hughes; When: 2 - 3 days; Reason: Recheck today's complaints, Continuance of care, Re-evaluation by your physician. Problem is new. Symptoms have improved. sv
--- NOTE | 2020-12-14 16:14 | ER ---
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 Landed on L wrist. Pain ll1 and swelling since. PMS intact. Coronavirus screen: Client denies travel out of the [place] in the last 14 days. At this time, the client does not indicate any symptoms associated with coronavirus-19. Ebola Screen: Patient denies travel to an Ebola-affected area in the 21 days before illness onset. Initial Sepsis Screen: Does the patient meet any 2 criteria? HR > 90 bpm. No. Patient's initial sepsis screen is negative. Does the patient have a suspected source of infection? Yes: Bone or joint infection. Risk Assessment: Do you want to hurt yourself or someone else? Patient reports no desire to harm self or others. Onset of symptoms was December 14, 2020. 14:32 Method Of Arrival: Wheelchair ll1 14:32 Acuity: PAUL 3 ll1 15:10 Care prior to arrival: Splint applied. Mechanism of Injury: Fall from standing sv position. Trauma event details: Injury occurred in the [facility], Injury occurred: at home. Injury occurred: December 14, 2020. Trauma Activation: Not Applicable Physician: ED Physician; Name: ; Notified At: ; Arrived At: Physician: General Surgeon; Name: ; Notified At: ; Arrived At: Physician: Radiology; Name: ; Notified At: ; Arrived At: Physician: Respiratory; Name: ; Notified At: ; Arrived At: Physician: Lab; Name: ; Notified At: ; Arrived At: Historical: - Allergies: 14:32 Codeine; ll1 - PMHx: 14:32 Hypertension; Hypothyroidism; Dementia; ll1 - PSHx: 14:32 Hysterectomy; Thyroidectomy; ll1 - Immunization history:: Flu vaccine is up to date. - Social history:: Smoking status: Patient denies any tobacco usage or history of. Screenin:10 Abuse screen: Denies threats or abuse. Denies injuries from another. Tuberculosis sv screening: No symptoms or risk factors identified. 15:10 Nutritional screening: No deficits noted. Fall Risk None identified. sv Primary Survey: 15:10 NO uncontrolled hemorrhage observed. A: The patient is alert. Airway: patent, No sv supplemental oxygen in use on arrival. Oral cavity: clear. Breathing/Chest: Respiratory pattern: regular, Respiratory effort: spontaneous, unlabored, Chest inspection: symmetrical rise and fall of the chest. Circulation: Pulses: palpable right radial artery and left radial artery. Skin color: pink, Skin temperature: warm, dry. Disability Alert. Exposure/Environment: All clothing and personal items were removed. Forensic evidence collection is not deemed to be indicated at this time. Items placed in patient belonging bag. There is no evidence of uncontrolled external bleeding. 16:00 Reassessment Airway Airway Oxygen No O2 Oral cavity Clear Trachea Midline sv Breathing/Chest Respiratory pattern Regular Respiratory effort Spontaneous Unlabored Chest inspection Symmetrical Circulation Pulses Palpable Color [place] Temperature Warm Dry Disability Alert. Secondary Survey: 15:10 HEENT: No deficits noted. Gastrointestinal: No deficits noted. : No deficits noted. sv No signs and/or symptoms were reported regarding the genitourinary system. Musculoskeletal: Range of motion: limited in left wrist Swelling present in dorsal aspect of left wrist. Assessment: 17:22 Reassessment: Patient appears in no apparent distress at this time. No changes from sv previously documented assessment. Patient and/or family updated on plan of care and expected duration. Pain level reassessed. Vital Signs: 14:32 BP 159 / 74; Pulse 93; Resp 17; Temp 98.4; Pulse Ox 96% ; Height 5 ft. 3 in. (160.02 ll1 cm); Pain 8/10; Suresh Coma Score: 15:10 Eye Response: spontaneous(4). Verbal Response: confused(4). Motor Response: obeys sv commands(6). Total: 14. Trauma Score (Adult): 15:10 Eye Response: spontaneous(1); Verbal Response: confused(1); Motor Response: obeys sv commands(2); Systolic BP: > 89 mm Hg(4); Respiratory Rate: 10 to 29 per min(4); [place] Score: 14; Trauma Score: 12 ED Course: 14:27 Patient arrived in ED. mr 14:34 Triage completed. ll1 14:34 Arm band placed on Patient placed in an exam room, on a stretcher. ll1 14:51 Evan Ponce NP is PHCP. pm1 14:51 Sree Francis MD is Attending Physician. pm1 14:57 Jessica Salmon, ELIO is Primary Nurse. sv 15:10 Patient has correct armband on for positive identification. Bed in low position. Call sv light in reach. Adult w/ patient. Door closed. Head of bed elevated. 15:10 Patient maintains SpO2 saturation greater than 95% on room air. sv 15:19 Ice pack to injury. sv 15:19 X-ray(s) taken. sv 15:19 Sling applied to left arm. sv 15:22 Thermoregulation: warm blanket given to patient. sv 15:36 Elbow Left 3 View XRAY In Process Unspecified. EDMS 15:37 Wrist Left (3 View) XRAY In Process Unspecified. EDMS 16:11 Eduardo Hughes MD is Referral Physician. pm1 16:44 Orthoglass splint: Sugar tong splint applied on left arm. capillary refill <3 seconds. dh3 17:22 No provider procedures requiring assistance completed. Patient did not have IV access sv during this emergency room visit. Administered Medications: 17:15 Drug: traMADol 50 mg Route: PO; sv 17:22 Follow up: Response: Medication administered at discharge. sv Intake: 15:10 PO: 0ml; Total: 0ml. sv Output: 15:10 Urine: 0ml; Total: 0ml. sv Outcome: 16:13 Discharge ordered by MD. pm1 17:22 Discharged to home via wheelchair, with family. sv 17:22 Condition: good 17:22 Discharge instructions given to patient, family, Instructed on discharge instructions, follow up and referral plans. medication usage, Demonstrated understanding of instructions, follow-up care, medications, Prescriptions given X 1. 17:25 Patient left the ED. ss 17:25 Patient's length of stay in the Emergency Department was greater than 2 hours. d/t sv xrayPatient's length of stay extended due to Signatures: Dispatcher [employer] EDMS Jessica Salmon, ELIO BALLARD sv Maria A Crane Candida Anne RN RN Evan Ponce NP MEDICINE TEACHER pm1 Joann Beckham 3 Fred, Lynsay, RN RN ll1
[2020-12-14] MEDS ORDERED: TRAMADOL HCL 50 MG TAB ONE (17:03)
[2020-12-14 17:44] VITALS: BP 159/74; TEMP 98.4; O2SAT 96
== END 2020-12-14 17:25 | disposition home or self-care (01) ==
LOC: ER 14:22
PROC: 2W3DX1Z Immobilization of Left Lower Arm using Splint (ICD-10-PCS; principal; 2020-12-14)
DX: S52.502A Unspecified fracture of the lower end of left radius, initial encounter for closed fracture (principal); W01.0XXA Fall on same level from slipping, tripping and stumbling without subsequent striking against object, initial encounter; Y93.9 Activity, unspecified; Y92.017 Garden or yard in single-family (private) house as the place of occurrence of the external cause; Z88.6 Allergy status to analgesic agent
CPT/HCPCS: 99284